=== PATIENT | male | born 1965 | race Caucasian/White ===

== ENCOUNTER → 2017-03-26 | Outpatient (CLI) | payer OTHER ==
[~2017-03-26] MED LIST: AMLO-114 PO; LISI-725 PO; OXYC-57 PO; TRAM-10 PO
[2017-03-26 16:39] LABS: BASO % 0.5 %; BASO ABS # 0.03 K/uL (0-0.2); COMPLETE YES; EOS % 5.9 %; IG% 0.2 %; LYMPH % 38.5 %; LYMPH ABS # 2.48 K/uL (1.2-3.4); MEAN CELL VOLUME 85.8 fL (80-100); MEAN CORPUSCULAR HEMOGLOBIN 28.3 pg (25-34); MEAN PLATELET VOLUME 9.5 fL (7.4-10.4); NEUT % 47.9 %; PLATELET COUNT 274 K/uL (130-400); RED BLOOD COUNT 5.13 M/uL (4.7-6.1); WHITE BLOOD COUNT 6.44 K/uL (4.8-10.8)
[2017-03-26 17:25] LABS: ALT/SGPT 43 U/L (12-78); AST/SGOT 20 U/L (15-37); BLOOD UREA NITROGEN 20 mg/dl (7-18); CALCIUM 9.6 mg/dl (8.5-10.1); CARBON DIOXIDE 32 mmol/L (21-32); CHLORIDE 104 mmol/L (98-107); GLUCOSE 93 mg/dl (70-99); HDL CHOLESTEROL 46 mg/dl; POTASSIUM 3.2 mmol/L (3.5-5.1); SODIUM 144 mmol/L (136-145)
[2017-03-26 17:31] LABS: ALKALINE PHOSPHATASE 134 U/L (45-117); CHOLESTEROL 191 mg/dl (0-200); CHOLESTEROL/HDL RATIO 4.2; LDL CHOLESTEROL CALCULATED 107 mg/dl; TRIGLYCERIDES 192 mg/dl (0-150); VERY LOW DENSITY LIPOPROT CALC 38 mg/dl
== END | disposition home or self-care (01) ==
LOC: C.LAB1850 15:56
PROVIDERS: ATTEND Internal Medicine
DX: E78.5 Hyperlipidemia, unspecified (principal); D64.9 Anemia, unspecified; Z12.5 Encounter for screening for malignant neoplasm of prostate

== ENCOUNTER 2023-02-24 10:14 | Observation (INO) ==
[2023-02-24] MEDS ORDERED: ONDANSETRON INJ 2 MG/ML 2 ML VIAL IV STA (10:58)
[2023-02-24] MEDS ORDERED: SODIUM CHLORIDE 0.9% 1000ML 1,000 ML IV ONE ×2 (10:58→13:39)
[2023-02-24] MEDS ORDERED: ACETAMINOPHEN 1,000 MG/100 ML VIAL IV STA (10:58)
--- NOTE | 2023-02-24 11:02 | Emergency Department Note ---
Impression & Plan Dizziness, Headache, Hypertension, Noncompliance, Nausea & vomiting ED Provider Note ED Provider Note NAME: MANFRED PEREZ AGE:57 SEX: Male : 1965 ARRIVES VIA: Private vehicle INFORMANT: Patient ED PROVIDER(s): Peace Pimentel DO CHIEF COMPLAINT: Dizziness, headache, vomiting HPI: This is a 57-year-old male presents emergency department due to 3 days of worsening dizziness, headaches, nausea and vomiting. Patient states he has had similar episodes previously going back over the last several months. He states in the last 3 days he has had a dull headache/pressure behind his eyes, dizziness that he describes as spinning with any changing positions particularly standing and walking, and once he becomes dizzy he then develops nausea and occasionally vomiting. He denies any recent head trauma or injury. He denies fevers, chills, or URI symptoms. He states he does have a history of high blood pressure but does not take his medications because it makes him too tired. He denies any new medications. He denies any seasonal allergies. Patient is has had prior mild similar symptoms, however they have never lasted this long over the severe. No prior known trigger or pattern to these episodes. He denies any recent trauma or change in activity. No prior history of migraines. Patient denies any alcohol use or substance abuse. PAST MEDICAL HISTORY:See Below PAST SURGICAL HISTORY:See Below FAMILY HISTORY:See Below SOCIAL HISTORY:See Below HOME MEDICATIONS:See Below ALLERGIES:See Below VITALS:See Below PHYSICAL EXAMINATION: GENERAL: alert, well appearing, well nourished, no distress, non-toxic EYE EXAM: normal conjunctiva, PERRL and EOM's grossly intact OROPHARYNX: no exudate, no erythema, lips, buccal mucosa, and tongue normal and mucous membranes are moist NECK: supple, no nuchal rigidity, no adenopathy, non-tender LUNGS: Clear to auscultation. Normal chest wall mechanics, no w/r/r HEART: no murmurs, S1 normal and S2 normal ABDOMEN: abdomen soft, non-tender, normo-active bowel sounds, no masses, no rebound or guarding. BACK: Back is symmetrical on inspection and there is no deformity, no midline tenderness, no CVA tenderness. SKIN: no rashes, petechiae, orbruising UPPER EXTREMITIES: upper extremities are grossly normal. FROM, nml pulses b/l. LOWER EXTREMITIES: No pitting edema. FROM, nml pulses b/l. NEURO EXAM: Normal sensorium, cranial nerves II-XII grossly intact, normal speech, no facial droop,nogross weakness of arms, no gross weakness of legs. Gross sensation intact. No ataxia. Vital Signs: reviewed and remarkable Differential Diagnosis: Differential diagnosis includes etiologies such as benign positional vertigo, dehydration, hypovolemia, anemia, tumor, infection, hypoglycemia, electrolyte abnormalities, cardiac sources, intracerebral event, toxicologic, neurologic, as well as others were entertained. MEDICAL DECISION MAKING: This is a 57-year-old male presents with 3 days of worsening dizziness, nausea vomiting, and retro-orbital head pressure. Patient noted to be markedly hypertensive on arrival and patient admits to history of hypertension and noncompliance with prescribed regimen. Labs drawn and sent, IV established, EKG performed and interpreted by me at bedside, chest x-ray performed interpreted by me at bedside and patient placed on telemetry. Patient's blood pressure elevated throughout, he was given both oral and IV antihypertensive medications in an effort to help improve his other symptomatology. He was hydrated with 2 L of IV fluids, given meclizine as well as Zofran for the nausea. Patient sent for CT/CTA that was reassuring. Patient's other labs reassuring. Patient reported feeling worse following improved blood pressure here and after discussion of possible differential diagnosis and potential need for other additional testing, case discussed with hospitalist for additional evaluation and management. Unclear if symptoms are related to hypertensive urgency. No evidence at this time for hypertensive emergency. Patient had a otherwise normal and nonfocal neuro exam throughout. Mild troponin elevation noted however I suspect this is from his chronic untreated hypertension at this time. No acute EKG changes. Consultation(s): 1622: Discussed with BENNIE Galo with [place] hospitalist team. ER Treatment Provided: See below 1502: Patient with significant dizziness and unsteady gait with attempts at standing for orthostatics and attempts at going to the bathroom. 1602: Patient states he is feeling worse despite his improved blood pressure. Diagnostics Interpreted By Me: -ECG: Normal sinus at 70, normal axis, normal intervals, no acute ST/T wave changes -Cardiac Monitoring: An order was placed for continuous cardiac monitoring. The monitor shows a rate of 78 with normal sinus rhythm. -Laboratory studies: As stated above and show below. -Imaging studies: X-ray Chest: A single view study of the chest was reviewed and was negative for cardiomegaly, focal infiltrate, effusion, pulmonary edema, or wide mediastinum. Triage Nursing Note Reviewed Prior/Outside Records Reviewed Past Med/Surg History Social History Smoking Status: Current some day smoker Preferred Language: Croatian Feels Safe at Home: Yes Allergies Allergies Allergy/AdvReac Type Severity Reaction Status Date / Time No Known Allergies Allergy Unknown Verified 02/24/23 15:10 Home Meds Home Medications Medication Instructions Recorded Confirmed No Known Home Medications 02/24/23 02/24/23 Results & Data (ED) Vital Signs Vital Signs - 24 hr 02/24/23 10:18 02/24/23 12:04 02/24/23 11:00 Temperature 36.8 C Temperature Source Temporal Artery Scan Pulse Rate - Lying Pulse Rate - Sitting Pulse Rate - Standing Pulse Rate 77 59 L 76 Pulse Rate [Apical] Pulse Rate from SpO2 Sensor 74 Respiratory Rate 18 16 Respiratory Effort / Characteristics Non-Labored Spontaneous Respiratory Depth Normal Respiratory Pattern Regular Blood Pressure - Lying Blood Pressure - Sitting Blood Pressure- Standing Blood Pressure 181/124 H 176/99 H Blood Pressure [Right Arm] Blood Pressure Mean 143 124 Blood Pressure Mean [Right Arm] Pulse Oximetry 97 98 Oxygen Delivery Method Room Air Sepsis Recent Fever Within 48 Hours No Sepsis New/Unexplained Change in Mental Status No Sepsis Action Taken by Nursing No Action Required 02/24/23 12:00 02/24/23 13:15 02/24/23 13:52 Temperature Temperature Source Pulse Rate - Lying 64 Pulse Rate - Sitting 79 Pulse Rate - Standing 75 Pulse Rate 57 L 61 Pulse Rate [Apical] Pulse Rate from SpO2 Sensor 57 L 64 Respiratory Rate 18 15 Respiratory Effort / Characteristics Respiratory Depth Respiratory Pattern Blood Pressure - Lying 176/110 H Blood Pressure - Sitting 194/121 H Blood Pressure- Standing 189/119 H Blood Pressure 180/97 H 170/104 H Blood Pressure [Right Arm] Blood Pressure Mean 124 126 Blood Pressure Mean [Right Arm] Pulse Oximetry 96 97 Oxygen Delivery Method Sepsis Recent Fever Within 48 Hours Sepsis New/Unexplained Change in Mental Status Sepsis Action Taken by Nursing 02/24/23 15:03 02/24/23 16:11 02/24/23 16:15 Temperature Temperature Source Pulse Rate - Lying Pulse Rate - Sitting Pulse Rate - Standing Pulse Rate 73 Pulse Rate [Apical] 68 68 Pulse Rate from SpO2 Sensor Respiratory Rate 18 18 Respiratory Effort / Characteristics Respiratory Depth Respiratory Pattern Blood Pressure - Lying Blood Pressure - Sitting Blood Pressure- Standing Blood Pressure Blood Pressure [Right Arm] 154/102 H 176/109 H Blood Pressure Mean Blood Pressure Mean [Right Arm] 119 131 Pulse Oximetry 98 98 Oxygen Delivery Method Room Air Room Air Sepsis Recent Fever Within 48 Hours Sepsis New/Unexplained Change in Mental Status Sepsis Action Taken by Nursing 02/24/23 16:58 Temperature Temperature Source Pulse Rate - Lying Pulse Rate - Sitting Pulse Rate - Standing Pulse Rate Pulse Rate [Apical] 66 Pulse Rate from SpO2 Sensor Respiratory Rate 16 Respiratory Effort / Characteristics Respiratory Depth Respiratory Pattern Blood Pressure - Lying Blood Pressure - Sitting Blood Pressure- Standing Blood Pressure Blood Pressure [Right Arm] 189/104 H Blood Pressure Mean Blood Pressure Mean [Right Arm] 132 Pulse Oximetry 96 Oxygen Delivery Method Room Air Sepsis Recent Fever Within 48 Hours Sepsis New/Unexplained Change in Mental Status Sepsis Action Taken by Nursing Laboratory Data 02/24/23 10:52 02/24/23 10:52 Lab Results 02/24/23 02/24/23 02/24/23 Range/Units 10:52 10:52 10:52 WBC 6.89 (4.8-10.8) K/ul RBC 5.43 (4.70-6.10) M/uL Hgb 15.4 (14.0-18.0) g/dl Hct 45.9 (42.0-52.0) % MCV 84.5 (80.0-100.0) fL MCH 28.4 (25.0-34.0) pg MCHC 33.6 (32.0-36.0) g/dL RDW Std Deviation 37.5 (36.4-46.3) fL RDW Coeff of Eleazar 12.4 (11.5-14.5) % Plt Count 301 (130-400) K/uL MPV 9.3 L (9.4-12.4) fL Immature Gran % (Auto) 0.3 % Neut % (Auto) 56.6 % Lymph % (Auto) 26.9 % [place] % (Auto) 8.1 % Eos % (Auto) 7.4 % Baso % (Auto) 0.7 % Neut # (Auto) 3.90 (1.40-6.50) K/uL Lymph # (Auto) 1.85 (1.2-3.4) K/uL [place] # (Auto) 0.56 (0.11-0.59) K/uL Eos # (Auto) 0.51 H (0-0.50) K/uL Baso # (Auto) 0.05 (0-0.2) K/uL Immature Gran # (Auto) 0.02 (0.01-0.20) K/uL ESR 23 H (0-20) mm/hr Sodium 140 (136-145) mmol/L Potassium 4.0 (3.5-5.1) mmol/L Chloride 104 (98-107) mmol/L Carbon Dioxide 29 (21-32) mmol/L Anion Gap 7 (3-11) BUN 19 (6-23) mg/dl Creatinine 1.10 (0.6-1.4) mg/dl Est Cr Clr Drug Dosing 80.8 ml/min Est GFR ( Amer) 87.1 ml/min Est GFR (Non-Af Amer) 75.2 ml/min BUN/Creatinine Ratio 17.3 (10-20) Glucose 99 (70-99(Fasting)) mg/dl Calcium 9.0 (8.6-10.3) mg/dl Magnesium 2.3 (1.7-2.4) mg/dl Total Bilirubin 0.4 (0.2-1.0) mg/dl AST 19 (13-39) U/L ALT 26 (7-52) U/L Alkaline Phosphatase 92 (34-104) U/L Troponin I High Sens 23.5 H (0-20) pg/ml Total Protein 7.1 (6.0-8.3) gm/dl Albumin 4.2 (3.4-5.0) gm/dl Globulin 2.9 (2.5-4.0) gm/dl Albumin/Globulin Ratio 1.4 (0.9-2) Lipase 18 (11-82) U/L TSH (0.300-4.500) uIu/ml 02/24/23 Range/Units 10:52 WBC (4.8-10.8) K/ul RBC (4.70-6.10) M/uL Hgb (14.0-18.0) g/dl Hct (42.0-52.0) % MCV (80.0-100.0) fL MCH (25.0-34.0) pg MCHC (32.0-36.0) g/dL RDW Std Deviation (36.4-46.3) fL RDW Coeff of Elaezar (11.5-14.5) % Plt Count (130-400) K/uL MPV (9.4-12.4) fL Immature Gran % (Auto) % Neut % (Auto) % Lymph % (Auto) % [place] % (Auto) % Eos % (Auto) % Baso % (Auto) % Neut # (Auto) (1.40-6.50) K/uL Lymph # (Auto) (1.2-3.4) K/uL [place] # (Auto) (0.11-0.59) K/uL Eos # (Auto) (0-0.50) K/uL Baso # (Auto) (0-0.2) K/uL Immature Gran # (Auto) (0.01-0.20) K/uL ESR (0-20) mm/hr Sodium (136-145) mmol/L Potassium (3.5-5.1) mmol/L Chloride (98-107) mmol/L Carbon Dioxide (21-32) mmol/L Anion Gap (3-11) BUN (6-23) mg/dl Creatinine (0.6-1.4) mg/dl Est Cr Clr Drug Dosing ml/min Est GFR ( Amer) ml/min Est GFR (Non-Af Amer) ml/min BUN/Creatinine Ratio (10-20) Glucose (70-99(Fasting)) mg/dl Calcium (8.6-10.3) mg/dl Magnesium (1.7-2.4) mg/dl Total Bilirubin (0.2-1.0) mg/dl AST (13-39) U/L ALT (7-52) U/L Alkaline Phosphatase (34-104) U/L Troponin I High Sens (0-20) pg/ml Total Protein (6.0-8.3) gm/dl Albumin (3.4-5.0) gm/dl Globulin (2.5-4.0) gm/dl Albumin/Globulin Ratio (0.9-2) Lipase (11-82) U/L TSH 1.761 (0.300-4.500) uIu/ml Administered Medications Discontinued Medications Amlodipine Besylate (Amlodipine Besylate 5 Mg Tab) 5 mg PO NOW ONE Stop: 02/24/23 13:03 Last Admin: 02/24/23 13:13 Dose: 5 mg Documented By: MARGARITA Hydralazine HCl (Hydralazine Hcl 20 Mg/Ml Vial) 10 mg IV NOW STA Stop: 02/24/23 14:34 Last Admin: 02/24/23 14:39 Dose: 10 mg Documented By: JOSE JUAN Sodium Chloride (Nss 1000ml) 1,000 mls @ 999 mls/hr IV .Q1H1M ONE Stop: 02/24/23 11:58 Last Infusion: 02/24/23 12:24 Dose: 0 mls/hr Documented By: Admin: 02/24/23 11:18 Dose: 999 mls/hr Documented By: MARGARITA Acetaminophen (Ofirmev) 1,000 mg in 100 mls @ 400 mls/hr IV NOW STA Stop: 02/24/23 11:12 Last Infusion: 02/24/23 11:40 Dose: 0 mls/hr Documented By: Admin: 02/24/23 11:19 Dose: 400 mls/hr Documented By: MARGARITA Sodium Chloride (Nss 1000ml) 1,000 mls @ 999 mls/hr IV .Q1H1M ONE Stop: 02/24/23 14:39 Last Infusion: 02/24/23 14:45 Dose: 0 mls/hr Documented By: Admin: 02/24/23 13:51 Dose: 999 mls/hr Documented By: JOSE JUAN Ioversol (Optiray 320 500ml) 114 ml IV ONCE ONE Stop: 02/24/23 12:19 Last Admin: 02/24/23 12:23 Dose: 114 ml Documented By: HELENE Meclizine HCl (Meclizine Hcl 25 Mg Tab) 25 mg PO NOW STA Stop: 02/24/23 13:03 Last Admin: 02/24/23 13:13 Dose: 25 mg Documented By: MARGARITA Ondansetron HCl (Ondansetron Inj 2 Mg/Ml 2 Ml Vial) 4 mg IV NOW STA Stop: 02/24/23 10:59 Last Admin: 02/24/23 11:18 Dose: 4 mg Documented By: [facility] Imaging Data Radiologist's Impression: Head CT 02/24/23 10:58 CT head/brain wo con CLINICAL HISTORY: 57 years-old Male with headache, dizzy. Acute headache with dizziness TECHNIQUE: Multiple axial CT images of the head were obtained without contrast. A dose lowering technique was utilized adhering to the principles of ALARA. COMPARISON: Head CT 09/15/2022 FINDINGS: No acute intracranial hemorrhage, midline shift, intracranial mass, hydrocephalus, territorial ischemia or abnormal extra-axial collection. The calvarium is intact. The paranasal sinuses, mastoid air cells, and middle ear cavities are clear. IMPRESSION: No acute intracranial abnormality. ACT 112: Negative or not required by law. The above report was generated using voice recognition software. It may contain grammatical, syntax or spelling errors. Electronically signed by: Christian Beckford M.D. 02/24/2023 12:45 PM Head CTA 02/24/23 10:58 HEAD CTA HISTORY: dizzy, headache, htn TECHNIQUE: Multiaxial CT images of the head were performed both before and after the intravenous administration of contrast to evaluate the major cerebral vessels. Maximum intensity projection images were also obtained. A dose lowering technique was utilized adhering to the principles of ALARA. COMPARISON: Head CT 09/15/2022. FINDINGS: There is no mass, hematoma, midline shift, or acute infarct. Visualized intracranial internal carotid arteries, distal vertebral arteries, and basilar artery are widely patent. There is no significant stenosis, occlusion, or aneurysm seen within the bilateral ACAs, MCAs, or bucket operator. IMPRESSION: No significant stenosis, occlusion, or aneurysm within the [place]. ACT 112: Negative or not required by law. Electronically signed by: Tre Mckeon M.D. 02/24/2023 12:40 PM Neck CTA 02/24/23 10:58 CT ANGIOGRAPHY OF THE NECK WITH CONTRAST CLINICAL HISTORY: Headache. Dizziness. Hypertension. COMPARISON STUDY: No previous studies for comparison. Technique: CT angiography of the carotid and vertebral arteries was obtained using Optiray and 3D reconstruction on an independent workstation. NASCET criteria was utilized. Automated exposure control was utilized for the study. A dose lowering technique was utilized adhering to the principles of ALARA. Findings: Visualized portions of the lung apices are unremarkable. There is no c ervical spine fracture. No suspicious osseous lesions are present. Multilevel degenerative changes within the cervical spine are present. The bilateral common carotid, cervical internal carotid and vertebral arteries are patent. There is no stenosis or dissection within these vessels. There is mild plaque within the proximal bilateral internal carotid arteries. No aneurysm within the neck. IMPRESSION: No stenosis or dissection within the bilateral common carotid, cervical internal carotid or vertebral arteries. Mild plaque within the proximal bilateral internal carotid arteries. ACT 112: Negative or not required by law. Electronically signed by: Kevon Alston M.D. 02/24/2023 12:35 PM Chest X-Ray 02/24/23 10:59 XR chest 1V portable HISTORY: Hypertension. COMPARISON: Chest 09/15/2022. FINDINGS: The lungs are clear. Cardiac silhouette is normal in size. No pleural effusions. No pneumothorax. IMPRESSION: No acute process. ACT 112: Negative or not required by law. Electronically signed by: Tre Mckeon M.D. 02/24/2023 11:11 AM Discharge Plan Visit Data Chief Complaint: TIA Symptoms Stated Complaint: SPINS, EYE SIGHT COMES AND GOES, NAUSEA, LAST 3 D ED Provider: Peace Pimentel Discharge Problem: Dizziness, Headache, Hypertension, Noncompliance, Nausea & vomiting Forms Stand Alone Forms: Snapd App Prescriptions Prescriptions: No Action No Known Home Medications Referrals Referrals: PCP,NO [Primary Care Provider] -
--- NOTE | 2023-02-24 11:12 | XRay Report ---
XR chest 1V portable HISTORY: Hypertension. COMPARISON: Chest 09/15/2022. FINDINGS: The lungs are clear. Cardiac silhouette is normal in size. No pleural effusions. No pneumot horax. IMPRESSION: No acute process. ACT 112: Negative or not required by law. Electronically signed by: Tre Mckeon M.D. 02/24/2023 11:11 AM
[2023-02-24 11:17] LABS: Basophils # (auto) 0.05 K/uL (0-0.2); Basophils % (auto) 0.7 %; Eosinophils # (auto) 0.51 K/uL (0-0.50); Eosinophils % (auto) 7.4 %; Hematocrit (blood only) 45.9 % (42.0-52.0); Hemoglobin 15.4 g/dl (14.0-18.0); Immature Granulocytes # (auto) 0.02 K/uL (0.01-0.20); Immature Granulocytes % (auto) 0.3 %; Lymphocytes # (auto) 1.85 K/uL (1.2-3.4); Lymphocytes % (auto) 26.9 %; Mean Corpuscular Hemoglobin 28.4 pg (25.0-34.0); Mean Corpuscular Hgb Conc 33.6 g/dL (32.0-36.0); Mean Corpuscular Volume 84.5 fL (80.0-100.0); Mean Platelet Volume 9.3 fL (9.4-12.4); Monocytes # (auto) 0.56 K/uL (0.11-0.59); Monocytes % (auto) 8.1 %; Neutrophils % (auto) 56.6 %; Platelet Count 301 K/uL (130-400); RDW Coefficient of Variation 12.4 % (11.5-14.5); RDW Standard Deviation 37.5 fL (36.4-46.3); Red Blood Count 5.43 M/uL (4.70-6.10); White Blood Count 6.89 K/ul (4.8-10.8)
[2023-02-24 11:40] LABS: Albumin Globulin Ratio 1.4 (0.9-2); Albumin Level 4.2 gm/dl (3.4-5.0); BUN Creatinine Ratio 17.3 (10-20); Bilirubin,Total 0.4 mg/dl (0.2-1.0); Creatinine Clr Calc Pharmacy 80.8 ml/min; Est GFR (African American) 87.1 ml/min; Est GFR (Non-African American) 75.2 ml/min; Globulin 2.9 gm/dl (2.5-4.0); Magnesium 2.3 mg/dl (1.7-2.4); Total Protein 7.1 gm/dl (6.0-8.3)
[2023-02-24 11:45] LABS: Troponin I High Sensitivity 23.5 pg/ml (0-20)
--- NOTE | 2023-02-24 12:00 | Electrocardiogram Report ---
Test Reason : Blood Pressure : / mmHG Vent. Rate : 070 BPM Atrial Rate : 070 BPM P-R Int : 134 ms QRS Dur : 102 ms QT Int : 398 ms P-R-T Axes : 046 -07 111 degrees QTc Int : 429 ms Normal sinus rhythm Left ventricular hypertrophy with repolarization abnormality Abnormal ECG When compared with ECG of 15-SEP-2022 13:09, No significant change was found Confirmed by Frederick Garibay ([id number]) on 02/24/2023 12:00:22 PM Referred By: REFERRED SELF Confirmed By:Frederick Garibay
[2023-02-24] MEDS ORDERED: OPTIRAY 320 500ml IV ONE (12:18)
--- NOTE | 2023-02-24 12:37 | CT Scan Report ---
CT ANGIOGRAPHY OF THE NECK WITH CONTRAST CLINICAL HISTORY: Headache. Dizziness. Hypertension. COMPARISON STUDY: No previous studies for comparison. Technique: CT angiography of the carotid and vertebral arteries was obtained using Optiray and 3D rec onstruction on an independent workstation. NASCET criteria was utilized. Automated exposure control was utilized for the study. A dose lowering technique was utilized adhering to the principles of ALA RA. Findings: Visualized portions of the lung apices are unremarkable. There is no cervical spine fractur e. No suspicious osseous lesions are present. Multilevel degenerative changes within the cervical spi ne are present. The bilateral common carotid, cervical internal carotid and vertebral arteries are pa tent. There is no stenosis or dissection within these vessels. There is mild plaque within the proxim al bilateral internal carotid arteries. No aneurysm within the neck. IMPRESSION: No stenosis or dissection within the bilateral common carotid, cervical internal carotid or vertebral arteries. Mild plaque within the proximal bilateral internal carotid arteries. ACT 112: Negative or not required by law. Electronically signed by: Kevon Alston M.D. 02/24/2023 12:35 PM
--- NOTE | 2023-02-24 12:41 | CT Scan Report ---
HEAD CTA HISTORY: dizzy, headache, htn TECHNIQUE: Multiaxial CT images of the head were performed both before and after the intravenous admi nistration of contrast to evaluate the major cerebral vessels. Maximum intensity projection images we re also obtained. A dose lowering technique was utilized adhering to the principles of ALARA. COMPARISON: Head CT 09/15/2022. FINDINGS: There is no mass, hematoma, midline shift, or acute infarct. Visualized intracranial international controller al carotid arteries, distal vertebral arteries, and basilar artery are widely patent. There is no sig nificant stenosis, occlusion, or aneurysm seen within the bilateral ACAs, MCAs, or talent development consultant. IMPRESSION: No significant stenosis, occlusion, or aneurysm within the [place]. ACT 112: Negative or not required by law. Electronically signed by: Tre Mckeon M.D. 02/24/2023 12:40 PM
--- NOTE | 2023-02-24 12:48 | CT Scan Report ---
CT head/brain wo con CLINICAL HISTORY: 57 years-old Male with headache, dizzy. Acute headache with dizziness TECHNIQUE: Multiple axial CT images of the head were obtained without contrast. A dose lowering tech nique was utilized adhering to the principles of ALARA. COMPARISON: Head CT 09/15/2022 FINDINGS: No acute intracranial hemorrhage, midline shift, intracranial mass, hydrocephalus, territorial ischem ia or abnormal extra-axial collection. The calvarium is intact. The paranasal sinuses, mastoid air cells, and middle ear cavities are clear . IMPRESSION: No acute intracranial abnormality. ACT 112: Negative or not required by law. The above report was generated using voice recognition software. It may contain grammatical, syntax o r spelling errors. Electronically signed by: Christian Beckford M.D. 02/24/2023 12:45 PM
[2023-02-24] MEDS ORDERED: MECLIZINE HCL 25 MG TAB PO STA (13:02)
[2023-02-24] MEDS ORDERED: amLODIPine BESYLATE 5 MG TAB PO ONE (13:02)
[2023-02-24] MEDS ORDERED: hydrALAZINE HCL 20 MG/ML VIAL IV STA (14:33)
--- NOTE | 2023-02-24 16:29 | History & Physical Report ---
Date of Service February 24, 2023 Assessment & Plan (1) Dizziness: Plan: -Admit to med/tele -At this time the etiology of the patient's dizziness, nausea, vomiting and BL tinnitus appear most consistent with BPPV, but other neurologic causes cannot be ruled out at this time -He has had the symptoms for years but they have been exacerbated over the past week -Has a long history of HTN with medical noncompliance as he feels antihypertensives exacerbate his symptoms -CT of the head and CTA of the head and neck were negative for acute causes -Will obtain MRI of the brain WO con for further evaluation -Prn meclizine for recurrence of symptoms, fall precautions ordered -Will hold additional antihypertensives at this time and await MRI results -PT and OT consults placed, will request Raeann maneuver testing -BL SCD's for DVT PPX -AM CBC, BMP (2) Elevated troponin: Plan: -Initial high sen trop elevated at 23, the patient is asymptomatic and without ST segment or T-wave changes -Will repeat another high sen trop STAT and monitor on tele (3) Hypertension: Plan: -Hold antihypertensives for now until MRI of the brain is obtained -May need to restart the patient on one regimen prior to discharge Plan The patient was discussed with Dr. Harper at the time of the admission History of Present Illness Chief Complaint: Dizziness, nausea, comiting Primary Care Provider: ROSALINDA PCP Tristin is a 57 year old male with a PMH significant for HTN, tobacco abuse, and previous episodes of dizziness who presented to the [facility] ED on 02/24/23 with complaints of persistent dizziness, nausea, and vomiting. In the ED the patient was initially found to be afebrile, hypertensive at 181/124, and stable on RA. Labs were significant for a CBC WNL, ESR of 23, CMP WNL, initial high sen trop of 23.5, and TSH WNL. CT of the head was read as "No acute intracranial abnormality.". CTA of the head was read as "No significant stenosis, occlusion, or aneurysm within the augustine of Huff.". CTA of the neck was read as "No stenosis or dissection within the bilateral common carotid, cervical internal carotid or vertebral arteries. Mild plaque within the proximal bilateral internal carotid arteries.". Chest xray was read as "No acute process.". Per the ED staff, the patient was initially given meclizine, 2L NSS, and zofran without relief of his symptoms. After his initial stroke workup was negative he was given 5 mg PO amlodipine and 10 mg IV hydralazine for HTN, this reportedly made his symptoms worse. We were asked to admit the patient for further evaluation and treatment of his dizziness, nausea, vomiting, and HTN. At the time of the exam the patient was lying in bed in no acute distress. He states that he has had issues with dizziness for years. His typical symptoms are BL ringing in his ears, dizziness, and the sensation that the room is spinning. He states that he has used meclizine in the past which has worked at times. He states that he has a long history of HTN which has been difficult to control. He has previously been on Lisinopril, hydralazine, spironolactone, and carvedilol per chart review. He states in the past when his HTN is treated it makes his dizziness worse. He states he also has a remote history of CHF but is only on as needed lasix for swelling. His dizziness, nausea, and vomiting started again on 02/21. He states that walking exacerbates the symptoms and rest typically resolves them. His symptoms are worse over the past week than previously. He states that after he received the amlodipine and hydralazine in the ED his dizziness and nausea were exacerbated, even while lying in bed. Heis currently an intermittent smoker and denies consistent alcohol use and any recreational drug use. Please refer to Dr. Harper's attestation for any changes to the treatment plan Allergies Allergy/AdvReac Type Severity Reaction Status Date / Time No Known Allergies Allergy Unknown Verified 02/24/23 15:10 Home Medications Medication Instructions Recorded Confirmed Type No Known Home Medications 02/24/23 02/24/23 History Past Med/Surg History Social History Smoking Status: Never smoker Do You Dip or Chew Tobacco: Yes; Tobacco Cessation Education Requested by Patient: No Hx Alcohol Use: No Hx Substance Use: No Preferred Language: Slovak Communication Ability: Impaired Communication Ability Comment: [facility] Investment Accounting Clerk Required: No Beliefs That Will Affect Care: None Current Living Situation: Spouse Other Information That Helps Us Care for You: No Feels Safe at Home: Yes Safety Concerns: Feels Safe At This Time Assistive Devices: None Physical Exam Physical Exam: Physical Exam: General: In no acute distress, stated age, well-nourished, poor hygiene HEENT: Normocephalic, atraumatic, no scleral icterus, pupils around round, symmetrical, and reactive to light, moist mucus membranes, trachea midline, no thyromegaly Chest/Pulm: No respiratory distress, symmetrical chest expansion, clear breath sounds throughout Cardiac: RRR, no murmurs noted Abdomen: Negative for ascites and bruising, normoactive bowel sounds, soft, non-tender to palpation throughout Musculoskeletal: No acute trauma, RLE with reduced mobility due to previous injury and surgery Extremities: Radial, dorsalis pedis, and posterior tibial pulses are intact and symmetrical, no edema noted in the BL LE's Skin: Warm, dry, no rashes , lesions, or scars noted Neuro: Alert and oriented to person, place, month, year, and president, no focal defects, CN II-XII tested, EOM exacerbate his symptoms, no nystagmus noted , finger to nose test negative, no tremors noted Psych: No acute distress, calm and cooperative during the exam Results & Data Results & Data Vital Signs (Past 12 Hours) Vital Signs Temp Pulse Pulse Resp BP BP Pulse Ox 02/24/23 16:15 73 02/24/23 16:11 68 18 176/109 H 98 02/24/23 15:03 68 18 154/102 H 98 02/24/23 13:15 61 15 170/104 H 97 02/24/23 12:00 57 L 18 180/97 H 96 02/24/23 11:00 76 16 176/99 H 98 02/24/23 12:04 59 L 02/24/23 10:18 36.8 C 77 18 181/124 H 97 O2 Del Method 02/24/23 16:15 02/24/23 16:11 Room Air 02/24/23 15:03 Room Air 02/24/23 13:15 02/24/23 12:00 02/24/23 11:00 02/24/23 12:04 02/24/23 10:18 Room Air Laboratory Results Abnormal lab results 02/24/23 02/24/23 02/24/23 Range/Units 10:52 10:52 10:52 MPV 9.3 L (9.4-12.4) fL Eos # (Auto) 0.51 H (0-0.50) K/uL ESR 23 H (0-20) mm/hr Troponin I High Sens 23.5 H (0-20) pg/ml Diagnostic Findings Head CT 02/24/23 10:58 CT head/brain wo con CLINICAL HISTORY: 57 years-old Male with headache, dizzy. Acute headache with dizziness TECHNIQUE: Multiple axial CT images of the head were obtained without contrast. A dose lowering technique was utilized adhering to the principles of ALARA. COMPARISON: Head CT 09/15/2022 FINDINGS: No acute intracranial hemorrhage, midline shift, intracranial mass, hydrocephalus, territorial ischemia or abnormal extra-axial collection. The calvarium is intact. The paranasal sinuses, mastoid air cells, and middle ear cavities are clear. IMPRESSION: No acute intracranial abnormality. ACT 112: Negative or not required by law. The above report was generated using voice recognition software. It may contain grammatical, syntax or spelling errors. Electronically signed by: Christian Beckford M.D. 02/24/2023 12:45 PM Head CTA 02/24/23 10:58 HEAD CTA HISTORY: dizzy, headache, htn TECHNIQUE: Multiaxial CT images of the head were performed both before and after the intravenous administration of contrast to evaluate the major cerebral vessels. Maximum intensity projection images were also obtained. A dose lowering technique was utilized adhering to the principles of ALARA. COMPARISON: Head CT 09/15/2022. FINDINGS: There is no mass, hematoma, midline shift, or acute infarct. Visualized intracranial internal carotid arteries, distal vertebral arteries, and basilar artery are widely patent. There is no significant stenosis, occlusion, or aneurysm seen within the bilateral ACAs, MCAs, or teletype operator. IMPRESSION: No significant stenosis, occlusion, or aneurysm within the augustine of Huff. ACT 112: Negative or not required by law. Electronically signed by: Tre Mckeon M.D. 02/24/2023 12:40 PM Neck CTA 02/24/23 10:58 CT ANGIOGRAPHY OF THE NECK WITH CONTRAST CLINICAL HISTORY: Headache. Dizziness. Hypertension. COMPARISON STUDY: No previous studies for comparison. Technique: CT angiography of the carotid and vertebral arteries was obtained using Optiray and 3D reconstruction on an independent workstation. NASCET criteria was utilized. Automated exposure control was utilized for the study. A dose lowering technique was utilized adhering to the principles of ALARA. Findings: Visualized portions of the lung apices are unremarkable. There is no cervical spine fracture. No suspicious osseous lesions are present. Multilevel degenerative changes within the cervical spine are present. The bilateral common carotid, cervical internal carotid and vertebral arteries are patent. There is no stenosis or dissection within these vessels. There is mild plaque within the proximal bilateral internal carotid arteries. No aneurysm within the neck. IMPRESSION: No stenosis or dissection within the bilateral common carotid, cervical internal carotid or vertebral arteries. Mild plaque within the proximal bilateral internal carotid arteries. ACT 112: Negative or not required by law. Electronically signed by: Kevon Alston M.D. 02/24/2023 12:35 PM Chest X-Ray 02/24/23 10:59 XR chest 1V portable HISTORY: Hypertension. COMPARISON: Chest 09/15/2022. FINDINGS: The lungs are clear. Cardiac silhouette is normal in size. No pleural effusions. No pneumothorax. IMPRESSION: No acute process. ACT 112: Negative or not required by law. Electronically signed by: Tre Mckeon M.D. 02/24/2023 11:11 AM ECG Additional Comments: Normal sinus rhythm Left ventricular hypertrophy with repolarization abnormality Abnormal ECG When compared with ECG of 15-SEP-2022 13:09, No significant change was found Confirmed by Frederick Garibay ([id number]) on 02/24/2023 12:00:22 PM Code Status & VTE Plan Code Status Full code Supervising Physician Co-Signing Physician Notes I personally saw and examined the patient. I verified all orellana points and agree with Iraj Machado PA-C with the following exceptions and/or additions: 57 year old male presents to the ER with dizziness. He reports this is similar but more severe than his symptoms on August last year. Room spinning sensation with associated hearing loss and tinnitus b/l. O/E HS RRR, no murmurs, Chest CTAB, Abdo SNT, no unilateral focal weakness or change in sensation. Still have vertiginous symptoms. No nystagmus on exam. No significant worsening with head movement. A/P Vertigo, tinnitus, hearing loss - suspect meniere disease although previous MRIs including one today have not focussed on IAC therefore will get this for completeness. Use diazepam rather than meclizine for vertigo. Recommend ENT follow up although he reports he had this previously without any specific diagnosis. Could consider diuretic such as acetazolamide to reduce frequency of attacks but will defer this pending improvement in his symptoms. PG Care Time/CCT Total # of Minutes Spent Total Time Spent with Patient: Total time spent is greater than 50% in coordination of care (as documented) at patient's floor/unit and/or counseling patient: Coding [place] [address] INT INP/OBS CARE 3/75MIN Patient Type Established Medical Decision Making Moderate Complexity Diagnoses Dizziness R42 Elevated troponin R77.8 Hypertension I10
[2023-02-24] MEDS ORDERED: PHARMACIST DISCHARGE MED REC CONSULT PRN (16:49)
[2023-02-24] MEDS ORDERED: MECLIZINE HCL 25 MG TAB PO PRN (16:58)
[2023-02-24] MEDS ORDERED: LORazepam 2 MG/1 ML VIAL IV ONE (17:00)
[2023-02-24 17:16] LABS: Influenza A virus by PCR Negative (Neg); Influenza B virus by PCR Negative (Neg); RSV by PCR Negative (Neg); SARS CoV2 RNA(COVID-19) Ceph NEGATIVE (Negative)
--- NOTE | 2023-02-24 19:48 | Magnetic Resonance Report ---
Exam(s): MRI HEAD Without Contrast EXAM: MR Head Without Intravenous Contrast CLINICAL HISTORY: Reason for exam: stroke workup. TECHNIQUE: Magnetic resonance images of the head/brain without intravenous contrast in multiple planes. COMPARISON: CT head on 02/24/2023. MRI brain on 09/15/2022. FINDINGS: Brain: Unremarkable. No hemorrhage. No restricted diffusion to suggest acute infarct. Ventricles: Unremarkable. No ventriculomegaly. Bones/joints: Unremarkable. Sinuses: Mild mucosal thickening and polyps versus mucous retention cysts in the maxillary sinuses. Moderate to severe mucosal thickening in the ethmoid air cells. No acute sinusitis. Mastoid air cells: Unremarkable as visualized. No mastoid effusion. Orbits: Unremarkable as visualized. IMPRESSION: No restricted diffusion to suggest acute infarct. Electronically signed by: Carrie Su M.D. 02/24/23 19:47 PM
[2023-02-25] MEDS ORDERED: LORazepam 2 MG/1 ML VIAL IV PRN (00:21)
[2023-02-25] MEDS ORDERED: LORazepam 2 MG/1 ML VIAL IV STA (01:37)
[2023-02-25] MEDS ORDERED: GADOBUTROL 65ML VIAL IV ONE (02:05)
--- NOTE | 2023-02-25 03:22 | Magnetic Resonance Report ---
Exam(s): MRI IACS IV Amt: 8.5cc gadavist EXAM: MR Head With Intravenous Contrast, Internal Auditory Canal Protocol CLINICAL HISTORY: Reason for exam: tinnitus, hearing loss, vertigo r/o acoustic neuro. TECHNIQUE: Magnetic resonance images of the head/brain with intravenous contrast in multiple planes using internal auditory canal protocol. CONTRAST: Patient received 8.5cc gadavist of IV contrast COMPARISON: Comparison is made to prior noncontrast brain MRI from February 24, 2023. FINDINGS: Cranial nerves: Unremarkable. No mass. No abnormal enhancement. Cochlea and semicircular canals: Unremarkable. Cerebellopontine angles: Unremarkable. No mass. Brain: Unremarkable as visualized. No mass. No hemorrhage. The flow voids at the base of the brain are intact. Ventricles: Unremarkable as visualized. Bones/joints: Mild disc facet arthropathy at C2-3 and C3-4. Unremarkable. Sinuses: Chronic pansinusitis. No acute sinusitis. Mastoid air cells: Unremarkable as visualized. No mastoid effusion. Orbits: There is proliferation of the intraorbital fat. IMPRESSION: Normal internal auditory canal MRI. 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 Chronic pansinusitis. Electronically signed by: Tomasa Pierce MD 02/25/23 03:21 AM
[2023-02-25] MEDS: ACETAMINOPHEN 325 MG TAB PO PRN (08:20)
[2023-02-25 08:39] LABS: Basophils # (auto) 0.05 K/uL (0-0.2); Basophils % (auto) 0.9 %; Eosinophils % (auto) 8.6 %; Hematocrit (blood only) 43.9 % (42.0-52.0); Hemoglobin 15.1 g/dl (14.0-18.0); Immature Granulocytes # (auto) 0.02 K/uL (0.01-0.20); Immature Granulocytes % (auto) 0.3 %; Lymphocytes # (auto) 1.62 K/uL (1.2-3.4); Lymphocytes % (auto) 27.7 %; Mean Corpuscular Hemoglobin 28.5 pg (25.0-34.0); Mean Corpuscular Hgb Conc 34.4 g/dL (32.0-36.0); Mean Corpuscular Volume 82.8 fL (80.0-100.0); Mean Platelet Volume 9.4 fL (9.4-12.4); Monocytes # (auto) 0.42 K/uL (0.11-0.59); Monocytes % (auto) 7.2 %; Neutrophils # (auto) 3.23 K/uL (1.40-6.50); Neutrophils % (auto) 55.3 %; Platelet Count 284 K/uL (130-400); RDW Coefficient of Variation 12.6 % (11.5-14.5); White Blood Count 5.84 K/ul (4.8-10.8)
[2023-02-25 08:56] LABS: BUN Creatinine Ratio 17.5 (10-20); Calcium 8.9 mg/dl (8.6-10.3); Creatinine Clr Calc Pharmacy 86.3 ml/min; Est GFR (African American) 94.3 ml/min; Est GFR (Non-African American) 81.4 ml/min; Potassium 4.1 mmol/L (3.5-5.1)
[2023-02-25] MEDS: lisinopril 10 MG TAB PO SCH (11:08)
[2023-02-25] MEDS: MECLIZINE HCL 25 MG TAB PO SCH ×3 (11:08→21:25)
[2023-02-25] MEDS: methylPREDNISolone 40 MG in SYRINGE 0 ML IV SCH ×2 (11:08→16:19)
[2023-02-25] MEDS: diazePAM 5 MG TABLET PO PRN ×2 (11:58→21:24)
--- NOTE | 2023-02-25 14:30 | Hospitalist Progress Note ---
Date of Service February 25, 2023 Assessment & Plan (1) Dizziness: Plan: Suspected acute labyrinthitis. No CVA seen on brain MRI scan. Head CT scan on admission and head and neck CTA are negative. He is now on scheduled meclizine and Solu-Medrol. (2) Elevated troponin: Plan: No trending. No evidence of acute coronary syndrome. We will follow (3) Hypertension: Plan: Lisinopril started for blood pressure control. Plan Hopeful discharge to home tomorrow, February 26 Admission and Anticipated Discharge Date Admission Date: February 24, 2023 Subjective Alert and oriented. No acute distress. Brain MRI scan negative for acute CVA. Head and neck CTA and head CT scan also negative on admission. Lisinopril started for blood pressure control. He is on scheduled meclizine dosing and Solu-Medrol. Hopefully his symptoms will rapidly improve and he will be able to go home tomorrow, February 26 Review of Systems Review of Systems: Constitutional-no fever or chills ENT-no blurred vision, no double vision, no epistaxis, no sore throat Respiratory-no cough, no wheezing, no shortness of breath Cardiac-no palpitations, no chest pain, no syncope GI-no nausea, vomiting, diarrhea, melena, hematochezia -no urinary retention, no urinary incontinence, no dysuria, no hematuria Musculoskeletal-no joint pain, no muscle tenderness Skin-no bruising, no rashes, no pruritus Neuro-no isolated weakness, no paresthesia. Vertigo symptoms with movement Psych-no depression, no anxiety Physical Exam Physical Exam: General-alert and oriented x3, no fevers, no chills HEENT-head atraumatic and normocephalic, pupils equal and reactive to light, extraocular muscles intact Neck-no lymphadenopathy or thyromegaly, trachea midline Chest-clear to auscultation percussion. No rales wheezing or rhonchi Cardiac-regular rate and rhythm, normal S1 and S2 Abdomen-normal bowel sounds, nontender, no hepatosplenomegaly Extremities-no cyanosis, clubbing, or edema Neuro-vertigo symptoms with movement. Cranial nerves II through XII intact, motor and sensory function within normal limits, strength symmetrical , no focal deficits Psych-normal affect, normal mood Results & Data Results & Data Vital Signs (Past 12 Hours) Vital Signs Temp Pulse Pulse Resp BP BP Pulse Ox 02/25/23 12:20 36.6 C 68 17 172/97 H 96 02/25/23 11:11 66 02/25/23 08:07 36.8 C 69 17 169/94 H 96 02/25/23 03:13 36.6 C 85 18 173/98 H 97 O2 Del Method 02/25/23 12:20 Room Air 02/25/23 11:11 02/25/23 08:07 Room Air 02/25/23 03:13 Room Air Laboratory Results 02/25/23 08:23 02/25/23 08:23 PG Care Time/CCT Total # of Minutes Spent Total Time Spent with Patient: Total time spent is greater than 50% in coordination of care (as documented) at patient's floor/unit and/or counseling patient: Coding Level of Care Code 99126 SUB INP/OBS CARE 3/50MIN Diagnoses Dizziness R42 Elevated troponin R77.8 Hypertension I10
[2023-02-26] MEDS: methylPREDNISolone 40 MG in SYRINGE 0 ML IV SCH ×2 (00:53→07:44)
[2023-02-26 06:03] LABS: Hematocrit (blood only) 45.4 % (42.0-52.0); Hemoglobin 15.4 g/dl (14.0-18.0); Mean Corpuscular Hemoglobin 28.1 pg (25.0-34.0); Mean Corpuscular Hgb Conc 33.9 g/dL (32.0-36.0); Mean Corpuscular Volume 82.8 fL (80.0-100.0); Mean Platelet Volume 9.6 fL (9.4-12.4); Platelet Count 345 K/uL (130-400); RDW Coefficient of Variation 12.6 % (11.5-14.5); RDW Standard Deviation 38.2 fL (36.4-46.3); Red Blood Count 5.48 M/uL (4.70-6.10); White Blood Count 15.29 K/ul (4.8-10.8)
[2023-02-26 06:17] LABS: BUN Creatinine Ratio 21.8 (10-20); Calcium 9.4 mg/dl (8.6-10.3); Est GFR (African American) 96.6 ml/min; Est GFR (Non-African American) 83.3 ml/min
[2023-02-26 06:28] LABS: Basophils # (auto) 0.01 K/uL (0-0.2); Basophils % (auto) 0.1 %; Immature Granulocytes # (auto) 0.09 K/uL (0.01-0.20); Immature Granulocytes % (auto) 0.6 %; Lymphocytes # (auto) 0.88 K/uL (1.2-3.4); Lymphocytes % (auto) 5.8 %; Monocytes # (auto) 0.22 K/uL (0.11-0.59); Monocytes % (auto) 1.4 %; Neutrophils # (auto) 14.09 K/uL (1.40-6.50); Neutrophils % (auto) 92.1 %
[2023-02-26] MEDS: MECLIZINE HCL 25 MG TAB PO SCH (07:44)
[2023-02-26] MEDS: lisinopril 10 MG TAB PO SCH (07:44)
[2023-02-26] MEDS: ACETAMINOPHEN 325 MG TAB PO PRN (07:46)
[2023-02-26] MEDS ORDERED: METOPROLOL TARTRATE 50 MG TAB PO SCH (09:15)
[2023-02-26] MEDS ORDERED: AMPHETAMINE ASP/SULF/DEXTRAMPH 20 MG TAB PO SCH (09:15)
[2023-02-26] MEDS ORDERED: AMPHETAMINE ASP/SULF/DEXTRAMPH 5 MG TAB PO SCH ×2 (09:45→21:00)
--- NOTE | 2023-02-26 11:24 | Discharge Summary ---
Date of Service February 26, 2023 Principal Diagnosis Uncontrolled hypertension, dizziness, nausea vomiting Discharge Exam General-alert and oriented x3, no fevers, no chills HEENT-head atraumatic and normocephalic, pupils equal and reactive to light, extraocular muscles intact Neck-no lymphadenopathy or thyromegaly, trachea midline Chest-clear to auscultation percussion. No rales wheezing or rhonchi Cardiac-regular rate and rhythm, normal S1 and S2 Abdomen-normal bowel sounds, nontender, no hepatosplenomegaly Extremities-no cyanosis, clubbing, or edema Neuro-vertigo symptoms with movement. Cranial nerves II through XII intact, motor and sensory function within normal limits, strength symmetrical , no focal deficits Psych-normal affect, normal mood Discharge Data Allergies Allergy/AdvReac Type Severity Reaction Status Date / Time No Known Allergies Allergy Unknown Verified 02/24/23 15:10 Consultations 02/24/23 16:21 ED Decision to Admit Stat Ordered Studies 02/24/23 10:58 CT angio head w con Stat CT angio neck with con Stat CT head/brain wo con Stat 02/24/23 16:49 MR brain wo con Urgent 02/25/23 06:00 MRI brain [MR brain IAC wo/w con] Routine Hospital Course (1) Dizziness: Suspected acute labyrinthitis has been ruled out. Meclizine has been discontinued and steroids have been discontinued. No CVA seen on brain MRI scan. Head CT scan on admission and head and neck CTA are negative. (2) Elevated troponin: No trending. No evidence of acute coronary syndrome. We will follow (3) Hypertension: Lisinopril started but ineffective. This has been switched to metoprolol. Plan Discharge to home today, February 26. He needs to follow-up with a PCP within 1 we ek. Total Time Total Time Spent Total Time Spent (In Minutes): 40 minutes Discharge Plan Discharge Items Patient Disposition: Home - Self-Care Reason For Visit: DIZZINESS, NAUSEA, VOMITING Discharge Diagnosis: Uncontrolled hypertension, dizziness Activity: Resume your previous activity Non-emergency contact: Primary Care Provider Call non-emergency contact if: you have any medication questions Follow-up/Referrals: PCP,NO [Primary Care Provider] - Diet: Regular and Heart Healthy Addtl Attending Provider Instructions: Metoprolol has been started for blood pressure and heart rate control. Adderall has been restarted. Follow-up with a primary care provider within 1 week Pending Studies at Discharge: No Stand-Alone Forms: [facility], Smoking Cessation Medications and DC Order Prescriptions: New metoprolol tartrate 50 mg Tablet 50 mg PO BID Qty: 60 0RF dextroamphetamine-amphetamine 5 mg Tablet 5 mg PO BID Qty: 60 0RF Discharge Orders: Discharge Order (Routine); Ordered 02/26/23 Ordered By: Juanjose Taylor Admission Data Admit Date/Time: 02/24/23 16:28 Attending Provider: Juanjose Taylor Admit Provider: Yury Harper Primary Care Provider: PCP,NO Other Providers: Yury Harper Other Interventions: Discharge Summary Assessment (RN) Last Done: 02/26/23 10:38 Coding Level of Care Code 91039 INP/OBS DISCH >30 MIN Diagnoses Dizziness R42 Elevated troponin R77.8 Hypertension I10
[2023-02-26] MEDS ORDERED: STROKE PATIENT DISCHARGE STA (11:28)
== END 2023-02-26 12:20 | disposition home or self-care (01) ==
LOC: EDINP 10:14 → ED 10:14 → SUATTDRO 16:28 → 2W 19:41

== ENCOUNTER 2024-01-04 14:26 | Inpatient (IN) ==
--- NOTE | 2024-01-04 14:31 | ED Triage Note ---
Date of Service January 04, 2024 Provider in Triage Author: Shanti Dean History of Present Illness This patient was briefly evaluated while in triage. An abbreviated physical exam was performed. This patient is a 58-year-old Male who presents to the ED for evaluation admitted with flu A and pneumonia at an outside hospital last week (d/c last Wednesday) hx of CHF - does not take cardiac medications sharp chest pain 2 days ago, SOB, coughing up blood tinged mucus, pain with deep breathing Physical Exam GENERAL: NAD CARDIOVASCULAR: RRR RESPIRATORY: CTA ABDOMEN: BS x 4. Nontender to palpation. Initial orders for labs and / or imaging were placed and patient was placed in the waiting area until a bed is available. Please see further documentation for the full ED course.
--- NOTE | 2024-01-04 15:03 | XRay Report ---
XR chest 2V PA/lateral CLINICAL HISTORY: Dyspnea TECHNIQUE: 2 views of the chest were obtained. Comparison: Comparison is made to chest radiograph of 02/24/2023 FINDINGS: No lines and tubes are seen. The cardiomediastinal silhouette is normal. The lungs are clear. No evid ence of pleural effusion or pneumothorax. IMPRESSION: No acute abnormalities and in particular no radiographic evidence of pneumonia. ACT 112: Negative or not required by law. Electronically signed by: Abelardo Paris M.D. 01/04/2024 3:02 PM
[2024-01-04 16:06] LABS: Basophils # (auto) 0.03 K/uL (0.00-0.20); Basophils % (auto) 0.6 %; Eosinophils % (auto) 5.6 %; Hematocrit (blood only) 46.9 % (42.0-52.0); Hemoglobin 14.6 g/dl (14.0-18.0); Immature Granulocytes # (auto) 0.02 K/uL (0.01-0.20); Immature Granulocytes % (auto) 0.4 %; Lymphocytes % (auto) 31.7 %; Mean Corpuscular Hemoglobin 26.5 pg (25.0-34.0); Mean Corpuscular Hgb Conc 31.1 g/dL (32.0-36.0); Mean Corpuscular Volume 85.3 fL (80.0-100.0); Mean Platelet Volume 8.9 fL (9.4-12.4); Monocytes # (auto) 0.64 K/uL (0.11-0.59); Monocytes % (auto) 11.9 %; Neutrophils # (auto) 2.68 K/uL (1.40-6.50); Neutrophils % (auto) 49.8 %; Platelet Count 375 K/uL (130-400); RDW Coefficient of Variation 12.7 % (11.5-14.5); RDW Standard Deviation 39.1 fL (36.4-46.3); White Blood Count 5.37 K/ul (4.8-10.8)
[2024-01-04 16:22] LABS: Albumin Globulin Ratio 1.5 (0.9-2); Albumin Level 4.1 gm/dl (3.4-5.0); Bilirubin,Total 0.3 mg/dl (0.2-1.0); Calcium 9.4 mg/dl (8.6-10.3); Creatinine Clr Calc Pharmacy 96.5 ml/min; Est GFR (African American) 108.8 ml/min; Est GFR (Non-African American) 93.9 ml/min; Globulin 2.7 gm/dl (2.5-4.0); Potassium 3.9 mmol/L (3.5-5.1); Total Protein 6.8 gm/dl (6.0-8.3)
[2024-01-04 16:26] LABS: Troponin I High Sensitivity 30.1 pg/ml (0-20)
[2024-01-04 16:31] LABS: D Dimer 250 ug/L FEU (0-500); INR 0.9 (0.9-1.1); Partial Thromboplastin Ratio 0.9; Partial Thromboplastin Time 26 Seconds (21-31); Prothrombin Time 10.1 Seconds (9.0-12.0)
--- NOTE | 2024-01-04 16:46 | Emergency Department Note ---
Impression & Plan Chest pain, Elevated troponin, Dyspnea, Elevated brain natriuretic peptide (BNP) level, Influenza A ED Provider Note ED Provider Note NAME: MANFRED PEREZ AGE:58 SEX: Male : 1965 ARRIVES VIA: Private vehicle INFORMANT: Patient ED PROVIDER(s): Peace Pimentel DO CHIEF COMPLAINT: Chest pain, shortness of breath HPI: This is a 58-year-old male presents emergency department with family at bedside due to concern for increased chest pain and shortness of breath. Patient was admitted last week at an outside facility and diagnosed with influenza A and pneumonia. Family states he was hospitalized for 4 days and then discharged last Wednesday. They state he was sent home with Tamiflu and antibiotics which she finished. Family states he was resting, able to eat and drink, and still had the original lingering symptoms which included fatigue, body aches, weakness, nausea and vomiting, cough, and shortness of breath although he did slowly seem to be getting better until today. Today he complained of worsening shortness of breath and chest pain, increased fatigue and bodyaches. Family member states he has a history 5 years ago of having CHF following a bout of bronchitis. He has been noncompliant with his medications since then although he did see a receiving dock checker in [place]. She states during his admission last week he did have an echo which showed an ejection fraction of 33%. Patient also notes he has occasionally seen blood in the sputum. Patient is supposed to be on carvedilol, spironolactone, amlodipine, lisinopril, hydralazine, and diuretic as needed per family. PAST MEDICAL HISTORY:See Below PAST SURGICAL HISTORY:See Below FAMILY HISTORY:See Below SOCIAL HISTORY:See Below HOME MEDICATIONS:See Below ALLERGIES:See Below VITALS:See Below PHYSICAL EXAMINATION: GENERAL: alert, well appearing, well nourished, no distress, non-toxic EYE EXAM: normal conjunctiva, PERRL and EOM's grossly intact OROPHARYNX: no exudate, no erythema, lips, buccal mucosa, and tongue normal and mucous membranes are moist NECK: supple, no nuchal rigidity, no adenopathy, non-tender LUNGS: Clear to auscultation. Normal chest wall mechanics, no w/r/r HEART: no murmurs, S1 normal and S2 normal ABDOMEN: abdomen soft, non-tender, normo-active bowel sounds, no masses, no rebound or guarding. BACK: Back is symmetrical on inspection and there is no deformity, no midline tenderness, no CVA tenderness. SKIN: no rashes, petechiae, orbruising UPPER EXTREMITIES: upper extremities are grossly normal. FROM, nml pulses b/l. LOWER EXTREMITIES: No pitting edema. FROM, nml pulses b/l. NEURO EXAM: Normal sensorium, cranial nerves II-XII grossly intact, normal speech, no facial droop,nogross weakness of arms, no gross weakness of legs. Gross sensation intact. No ataxia. Vital Signs: reviewed and remarkable Differential Diagnosis: pneumonia, bronchitis, COPD/Asthma exacerbation, pneumothorax, pulmonary embolism, congestive heart failure, acute coronary syndrome, as well as others were considered MEDICAL DECISION MAKING: This is a 58-year-old male presents emergency room due to increased chest pain and shortness of breath. Patient with recent diagnosis of influenza and pneumonia and hospitalization at an outside facility. Patient was afebrile vital signs stable on arrival here. Labs drawn and sent, IV established, EKG and chest x-ray performed bedside interpreted by me. Patient initially seen in a triage area as there were no available regular ER rooms. Once available patient was also monitored on telemetry. Patient was given IV Tylenol, IV Pepcid, IV Lasix, IV Decadron, and a Xopenex nebulizer treatment. Patient's troponin mildly elevated and BNP more markedly elevated. Patient with remote history of CHF. We did attempt to obtain records from the outside hospital however none were ever faxed to us. It is unclear if the patient's recent diagnosis of influenza pneumonia could have pushed the patient towards heart failure or contributed to a pericarditis/myocarditis. Patient was sent for CT angiography additionally out of precaution and was noted to have some residual infectious/inflammatory changes, no evidence of PE, no pericardial effusion, no evidence of pleural effusion or pulmonary edema. Case discussed with hospitalist team for additional evaluation and management. Consultation(s): 1950: Discussed with Dr. Schneider, [place] hospitalist team, for additional evaluation and mgmt. ER Treatment Provided: See below Diagnostics Interpreted By Me: -ECG: Normal sinus at 70, normal axis, normal intervals, inverted T waves noted in V4 through V6 as well as aVL, baseline artifact noted; EKG changes were present on a prior from February 24, 2023 although are more pronounced today -Cardiac Monitoring: An order was placed for continuous cardiac monitoring. The monitor shows a rate of 70 with normal sinus rhythm. -Laboratory studies: As stated above and show below. -Imaging studies: X-ray Chest: A single view study of the chest was reviewed and was negative for cardiomegaly, focal infiltrate, effusion, pulmonary edema, or wide mediastinum. Triage Nursing Note Reviewed Prior/Outside Records Reviewed Past Med/Surg History Medical History Noncompliance Hypertension Social History Smoking Status: Current some day smoker Do You Dip or Chew Tobacco: Yes; Hx Alcohol Use: No Hx Substance Use: No Preferred Language: Prydein[place] Communication Ability: Effective Communication Ability Comment: [facility] Order Management Specialist Required: No Beliefs That Will Affect Care: None Current Living Situation: Spouse Feels Safe at Home: Yes Assistive Devices: None Allergies Allergies Allergy/AdvReac Type Severity Reaction Status Date / Time No Known Allergies Allergy Unknown Verified 01/04/24 17:38 Home Meds Home Medications Medication Instructions Recorded Confirmed No Known Home Medications 01/04/24 01/04/24 Results & Data (ED) Vital Signs Vital Signs - 24 hr 01/04/24 14:29 01/04/24 18:04 01/04/24 18:07 Temperature 36.8 C Temperature Source Temporal Artery Scan Pulse Rate 73 71 Pulse Rate [Apical] 71 Respiratory Rate 20 20 18 Respiratory Effort / Characteristics Non-Labored Spontaneous Respiratory Depth Normal Blood Pressure 163/109 H Blood Pressure [Right Arm] 154/101 H Blood Pressure Mean 127 Blood Pressure Mean [Right Arm] 118 Pulse Oximetry 98 99 99 Oxygen Delivery Method Room Air Sepsis Recent Fever Within 48 Hours No Sepsis New/Unexplained Change in Mental Status No Sepsis Action Taken by Nursing No Action Required 01/04/24 20:00 Temperature Temperature Source Pulse Rate Pulse Rate [Apical] 66 Respiratory Rate 16 Respiratory Effort / Characteristics Respiratory Depth Blood Pressure Blood Pressure [Right Arm] 147/97 H Blood Pressure Mean Blood Pressure Mean [Right Arm] 113 Pulse Oximetry 97 Oxygen Delivery Method Room Air Sepsis Recent Fever Within 48 Hours Sepsis New/Unexplained Change in Mental Status Sepsis Action Taken by Nursing Laboratory Data 01/04/24 15:29 01/04/24 15:29 Lab Results 01/04/24 01/04/24 01/04/24 Range/Units 15:29 17:46 18:30 WBC 5.37 (4.8-10.8) K/ul RBC 5.50 (4.70-6.10) M/uL Hgb 14.6 (14.0-18.0) g/dl Hct 46.9 (42.0-52.0) % MCV 85.3 (80.0-100.0) fL MCH 26.5 (25.0-34.0) pg MCHC 31.1 L (32.0-36.0) g/dL RDW Std Deviation 39.1 (36.4-46.3) fL RDW Coeff of Eleazar 12.7 (11.5-14.5) % Plt Count 375 (130-400) K/uL MPV 8.9 L (9.4-12.4) fL Immature Gran % (Auto) 0.4 % Neut % (Auto) 49.8 % Lymph % (Auto) 31.7 % Starke % (Auto) 11.9 % Eos % (Auto) 5.6 % Baso % (Auto) 0.6 % Neut # (Auto) 2.68 (1.40-6.50) K/uL Lymph # (Auto) 1.70 (1.20-3.40) K/uL Starke # (Auto) 0.64 H (0.11-0.59) K/uL Eos # (Auto) 0.30 (0.00-0.50) K/uL Baso # (Auto) 0.03 (0.00-0.20) K/uL Immature Gran # (Auto) 0.02 (0.01-0.20) K/uL PT 10.1 (9.0-12.0) Seconds INR 0.9 (0.9-1.1) APTT 26 (21-31) Seconds PTT Ratio 0.9 D-Dimer 250 (0-500) ug/L FEU Sodium 143 (136-145) mmol/L Potassium 3.9 (3.5-5.1) mmol/L Chloride 107 (98-107) mmol/L Carbon Dioxide 30 (21-32) mmol/L Anion Gap 6 (3-11) BUN 20 (6-23) mg/dl Creatinine 0.91 (0.6-1.4) mg/dl Est Cr Clr Drug Dosing 96.5 ml/min Est GFR ( Amer) 108.8 ml/min Est GFR (Non-Af Amer) 93.9 ml/min BUN/Creatinine Ratio 22.0 H (10-20) Glucose 111 H (70-99(Fasting)) mg/dl Calcium 9.4 (8.6-10.3) mg/dl Total Bilirubin 0.3 (0.2-1.0) mg/dl AST 27 (13-39) U/L ALT 42 (7-52) U/L Alkaline Phosphatase 93 (34-104) U/L Troponin I High Sens 30.1 H 31.4 H (0-20) pg/ml B-Natriuretic Peptide 626 H (0-100) pg/ml Total Protein 6.8 (6.0-8.3) gm/dl Albumin 4.1 (3.4-5.0) gm/dl Globulin 2.7 (2.5-4.0) gm/dl Albumin/Globulin Ratio 1.5 (0.9-2) Urine Color Yellow Urine Appearance Clear (Clear) Urine pH 6.0 (4.5-7.5) Ur Specific [place] 1.016 (1.000-1.030) Urine Protein Negative (Negative) Urine Glucose (UA) Negative (Negative) Urine Ketones Negative (Negative) Urine Blood Negative (Negative) Urine Nitrite Negative (Negative) Urine Bilirubin Negative (Negative) Urine Urobilinogen Negative (Negative) Ur Leukocyte Esterase Negative (Negative) Nasal Influ A H1 2008 PCR DETECTED A (NotDetected) Adenovirus (PCR) Not Detected (NotDetected) B. pertussis DNA (PCR) Not Detected (NotDetected) B.parapertussis DNA PCR Not Detected (NotDetected) C. pneumoniae DNA (PCR) Not Detected (NotDetected) Coronavirus OC43 (PCR) Not Detected (NotDetected) Coronavirus HKU1 (PCR) Not Detected (NotDetected) Coronavirus 229E (PCR) Not Detected (NotDetected) SARS-CoV-2 (PCR) Not Detected (NotDetected) Coronavirus NL63 (PCR) Not Detected (NotDetected) Human Metapneumovir PCR Not Detected (NotDetected) Influenza Type B (PCR) Not Detected (NotDetected) M. pneumoniae (PCR) Not Detected (NotDetected) Parainfluenza 1 (PCR) Not Detected (NotDetected) Parainfluenza 2 (PCR) Not Detected (NotDetected) Parainfluenza 3 (PCR) Not Detected (NotDetected) Parainfluenza 4 (PCR) Not Detected (NotDetected) RSV (PCR) Not Detected (NotDetected) Entero/Rhino (PCR) Not Detected (NotDetected) Administered Medications Discontinued Medications Dexamethasone Sodium Phosphate (DexamethasonePf 10 Mg/Ml Vial) 10 mg IV NOW ONE Stop: 01/04/24 19:58 Last Admin: 01/04/24 20:59 Dose: 10 mg Documented By: ISMA Furosemide (Furosemide Inj 20 Mg/2 Ml Vial) 20 mg IV ONE ONE Stop: 01/04/24 17:09 Last Admin: 01/04/24 18:03 Dose: 20 mg Documented By: ISMA Acetaminophen (Ofirmev) 1,000 mg in 100 mls @ 400 mls/hr IV NOW STA Stop: 01/04/24 17:22 Last Infusion: 01/04/24 18:29 Dose: Infused Documented By: Admin: 01/04/24 18:04 Dose: 400 mls/hr Documented By: ISMA Ioversol (Optiray 320 125ml) 117 ml IV ONCE ONE Stop: 01/04/24 18:41 Last Admin: 01/04/24 18:40 Dose: 117 ml Documented By: JAGUAR Levalbuterol HCl (Levalbuterol 1.25 Mg/3 Ml Neb) 1.25 mg NEB NOW STA Stop: 01/04/24 17:19 Last Admin: 01/04/24 18:04 Dose: 1.25 mg Documented By: ISMA Morphine Sulfate (Morphine Sulfate 2 Mg/Ml Carp) 1 mg IV NOW STA Stop: 01/04/24 20:21 Last Admin: 01/04/24 20:59 Dose: 1 mg Documented By: ISMA Imaging Data Radiologist's Impression: Chest X-Ray 01/04/24 14:31 XR chest 2V PA/lateral CLINICAL HISTORY: Dyspnea TECHNIQUE: 2 views of the chest were obtained. Comparison: Comparison is made to chest radiograph of 02/24/2023 FINDINGS: No lines and tubes are seen. The cardiomediastinal silhouette is normal. The lungs are clear. No evidence of pleural effusion or pneumothorax. IMPRESSION: No acute abnormalities and in particular no radiographic evidence of pneumonia. ACT 112: Negative or not required by law. Electronically signed by: Abelardo Paris M.D. 01/04/2024 3:02 PM Chest CTA 01/04/24 17:18 CT angio chest PE protocol CLINICAL HISTORY: PE TECHNIQUE: Multidetector row helical CT of the chest was performed with angiographic protocol. Coronal and sagittal reformations were obtained. Coronal and sagittal MIPS were obtained from the axial data set and were submitted for review. Automated dose lowering techniques and/or adjustment according to patient size were utilized for this exam. CT DOSE: 907.25 mGy.cm Comparison: None available at the time of this dictation. FINDINGS: Lungs and pleura: Tree in bud nodularity is seen in the right lung. Heart and pericardium: Cardiomegaly is seen with biatrial enlargement. Vessels: No evidence of pulmonary embolism. Mediastinum and belia: Mediastinal nodes measure up to 13 mm in diameter. Chest wall and lower neck: Unremarkable. Abdomen: A hiatal hernia is seen. Bones: Degenerative changes in the thoracic spine. IMPRESSION: 1. No pulmonary embolus. 2. Tree in bud nodularity and mediastinal lymphadenopathy compatible with infectious/inflammatory process. ACT 112: Negative or not required by law. Electronically signed by: Abelardo Paris M.D. 01/04/2024 7:11 PM Discharge Plan Visit Data Chief Complaint: Illness Stated Complaint: CHEST PAIN, TROUBLE BREATHING, PNEUMONIA 1 WEEK AG ED Provider: Peace Pimentel Discharge Problem: Chest pain, Elevated troponin, Dyspnea, Elevated brain natriuretic peptide (BNP) level, Influenza A Discharge Instructions Interventions: ED Discharge Assessment Last Done: 01/04/24 23:42
[2024-01-04 16:48] LABS: Adenovirus PCR Not Detected (NotDetected); Bordetella parapertussis PCR Not Detected (NotDetected); Bordetella pertussis PCR Not Detected (NotDetected); Chlamydia pneumoniae PCR Not Detected (NotDetected); Coronavirus 229E PCR Not Detected (NotDetected); Coronavirus CoV-2 (COVID19)PCR Not Detected (NotDetected); Coronavirus HKU1 PCR Not Detected (NotDetected); Coronavirus NL63 PCR Not Detected (NotDetected); Coronavirus OC43PCR Not Detected (NotDetected); Human Metapneumovirus PCR Not Detected (NotDetected); Influenza A (H1 2009) PCR DETECTED (NotDetected); Influenza B PCR Not Detected (NotDetected); Mycoplasma pneumoniae PCR Not Detected (NotDetected); Parainfluenza Virus 1 PCR Not Detected (NotDetected); Parainfluenza Virus 2 PCR Not Detected (NotDetected); Parainfluenza Virus 3 PCR Not Detected (NotDetected); Parainfluenza Virus 4 PCR Not Detected (NotDetected); Respiratory Syncytial VirusPCR Not Detected (NotDetected); Rhinovirus/Enterovirus PCR Not Detected (NotDetected)
--- OUTSIDE RECORDS SUMMARY | 2024-01-04 17:20 | External Medical Summary | Summary of Care ---
Author Name Unknown Organization [facility] Address [address] [place] [address] Phone [phone] Care Team Providers Care Fine Arts Instructor Name Role Phone John Stephens MD Primary Care Provider [phone]- [phone] Reason for Visit * Reason Onset Date Comments Appointment 12/20/2023 Encounter Details Date Type Department Care Team (Late st Contact Info) Description 12/20/2023 Telephone [facility] [address] [place] [address] Kellee Pérez RN Appointment Allergies No known active allergiesdocumented as of this encounter (statuses as of 12/29/2023) Medications Medication Sig Dispensed Refills Start Date End Date Status Lidocaine 4 % External Patch (Aspercreme) Place 1 Patch over 12 hours topically on the skin daily. 30 Patch 0 06/21/2023 Active Additional Information Patient not taking.Reported on 06/24/2023 Lisinopril 40 MG Oral Tablet Take 1 Tablet by mouth in the morning. 0 Active Metoprolol Tartrate 50 MG Oral Tablet (Lopressor) Take 1 Tablet by mouth in the morning and 1 Tablet before bedtime. 0 Active Amphetamine-Dextroa mphetamine 5 MG Oral Tablet (Adderall) Take 1 Tablet by mouth in the morning and 1 Tablet before bedtime. 0 Active documented as of this encounter (statuses as of 12/29/2023) Active Problems Problem Noted Date Diagnosed Date Chest pain 06/22/2023 Hearing loss 03/22/2006 documented as of this encounter (statuses as of 12/29/2023) Immunizations Name Administration Dates Next Due TDAP (age 10 and older)(Boostrix) 12/30/2021 documented as of this encounter Social History Tobacco Use Types Packs/Day Years Used Date Smoking Tobacco: Some Days Cigarettes Cigars Smokeless Tobacco: Never Comments:smokes occasionally . Alcohol Use Standard Drinks/Week Comments Yes 0 (1 standard drink = 0.6 oz pur e alcohol) socially, once a month. Sex and Gender Information Value Date Recorded Sex Assigned at Not on file Gender Identity Not on file Sexual Orientation Not on file Job Start Date Occupation Industry Not on file Not on file Not on file documented as of this encounter Miscellaneous Notes * Telephone Encounter - Kellee Pérez RN - 12/29/2023 1:50 PM EST Placed call out to patient [phone], no answer and VM not set up at this time. Patient is scheduled for office visit tomorrow, December 30, [address] Nuñez at 10am. Patient had reports of imaging in May 2023, although no physical images are available for review. Want to check if patient is bringing images with him. If not, we will postpone the office visit to another time. Kellee Pérez RN Cerebrovascular Nurse Navigator [facility] * Telephone Encounter - Kellee Pérez RN - 12/20/2023 2:11 PM EST Patient scheduled 11am for appt with Dr. Nuñez on 12/30. Tried to call to reschedule as change in providers schedule, called [phone], no answer and unable to provide VM. Moved to 10am same day. Kellee Pérez RN Cerebrovascular Nurse Navigator [facility] documented in this encounter Plan of Treatment Upcoming Encounters Date Type Department Care Team (Late st Contact Info) Description 12/30/2023 10:00 AM EST Office Visit Neurosurgery, [place] [address] [place] [address] Marek Nuñez MD [address] [place] [address] Health Maintenance Due Date Last Done Comments Hepatitis B (1 of 3 - 3-dose series) 1965 COVID-19 Vaccine (#1) 1965 Pneumococcal Vaccine: Pediatrics (0 to 5 Years) and At-Risk Patients (6 to 64 Years) (1 - PCV) 1973 Depression Screening 1979 HIV Screening 1982 Hepatitis C Screening 1985 Cologuard 2012 Fecal Occult Blood Test 2012 Sigmoidoscopy 2012 Zoster Vaccines (1 of 2) 2017 Colonoscopy 04/08/2019 04/08/2009, 05/10/2006 Colorectal Cancer Screening 04/08/2019 Influenza Vaccine (FLU shot) (#1) 2023 Lipid Panel 07/21/2026 07/21/2021, 03/27/2019 DTaP,Tdap,and Td Vaccines (2 - Td or Tdap) 12/30/2031 12/30/2021 GARDASIL-HPV IMMUNIZATION SERIES Aged Out No longer eligible b ased on patient's age to complete this topic MENINGOCOCCAL (MENACTRA/MENVEO) Aged Out No longer eligible b ased on patient's age to complete this topic documented as of this encounter Medical Devices Not on filedocumented as of this encounter Care Teams Fine Arts Instructor Relationship Specialty Start Date End Date John Stephens MD PCP - General 02/25/09 documented as of this encounter
--- OUTSIDE RECORDS SUMMARY | 2024-01-04 17:20 | External Medical Summary | Summary of Care ---
Author Name Unknown Organization [facility] Address [address] [place] [address] Phone [phone] Care Team Providers Care French Translator Name Role Phone John Stephens MD Primary Care Provider [phone]- [phone] Encounter Details Date Type Department Care Team Description 08/05/2023 Orders Only [facility] [address] [place] [address] Carola Baum MD [address] [place] [address] Encounter to establish care* Allergies No known active allergiesdocumented as of this encounter (statuses as of 08/05/2023) Medications Medication Sig Dispensed Refills Start Date [...] as of this encounter (statuses as of 08/05/2023) Active Problems Problem Noted Date Chest pain 06/22/2023 Hearing loss 03/22/2006 documented as of this encounter (statuses as of 08/05/2023) Immunizations Name Administration Dates Next Due TDAP (age 10 and older)(Boostrix) 12/30/2021 documented as of this encounter Social History Tobacco Use Types Packs/Day Years Used Date Smoking Tobacco: Some Days Cigarettes Cigars Smokeless Tobacco: Never Comments:smokes occasionally . Alcohol Use Standard Drinks/Week Comments Yes 0 (1 standard drink = 0.6 oz pur e alcohol) socially, once a month. Sex Assigned at Date Recorded Not on file Job Start Date Occupation Industry Not on file Not on file Not on file documented as of this encounter Plan of Treatment Upcoming Encounters Date Type Specialty Care Team Description 08/06/2023 Office Visit Cardiology Carola Baum MD [address], [place] [id number] 12/17/2023 Office Visit Gastroenterology Pia Roper CRNP [address] [place] [address] 12/30/2023 Office Visit Neurological Surgery Mraek Nuñez MD [address] [place] [address] Scheduled Orders Name Type Priority Associated Diagnoses Orde r Schedule EKG EKG Routine Encounter to establish care Expected: 08/06/2023 (Approximate), Expires: 08/05/2024 Health Maintenance Due Date Last Done Comments [...] Not on filedocumented as of this encounter Visit Diagnoses Diagnosis Encounter to establish care- Primary Other reasons for seeking consultation documented in this encounter Care Teams French Translator Relationship Specialty Start Date End Date John Stephens MD PCP - General 02/25/09 documented as of this encounter
--- OUTSIDE RECORDS SUMMARY | 2024-01-04 17:20 | External Medical Summary | Summary of Care ---
Author Name Unknown Organization [facility] Address [address] [place] [address] Phone [phone] Care Team Providers Care Armament Repairer Name Role Phone John Stephens MD Primary Care Provider +1- [phone] Reason for Visit * Reason Onset Date Comments STAIR Lung Nodule 06/22/2023 Lung Nodule Pr ogram Encounter Details Date Type Department Care Team Description 06/22/2023 Telephone STAIR LUNG NODULE [address] [place] [address] Program, Stair [address] [place] [address] STAIR Lung Nodule (Lung Nodule Program) Allergies No known active allergiesdocumented as of this encounter (statuses as of 07/12/2023) Medications Medication Sig Dispensed Refills Start Date End Date Status Lidocaine 4 % External Patch (Aspercreme) Place 1 Patch over 12 hours topically on the skin daily. 30 Patch 0 06/21/2023 Active Additional Information Patient not taking.Reported on 06/24/2023 documented as of this encounter (statuses as of 07/12/2023) Active Problems Problem Noted Date Chest pain 06/22/2023 Hearing loss 03/22/2006 documented as of this encounter (statuses as of 07/12/2023) Immunizations Name Administration Dates Next Due TDAP (age 10 and older)(Boostrix) 12/30/2021 documented as of this encounter Social History Tobacco Use Types Packs/Day Years Used Date Smoking Tobacco: Former Cigars Smokeless Tobacco: Never Tobacco Cessation:Counseling Given: Not Answered Comments:smokes occasionally. Alcohol Use Standard Drinks/Week Comments Yes 0 (1 standard drink = 0.6 oz pur e alcohol) socially, once a month. Sex Assigned at Date Recorded Not on file Job Start Date Occupation Industry Not on file Not on file Not on file documented as of this encounter Miscellaneous Notes * Telephone Encounter - Tracie Juares LPN - 07/12/2023 7:35 AM EDT Lung Nodule Referral Triaging - Communication to Patient Patient letter sent through [facility] or mail. Time spent: 10 minutes Tracie Juares LPN Coordinator STAIR (System to Track Abnormalities of Importance Reliably) [phone] Patient disenrolled from STAIR Program for Pulmonary Nodule - banner removed * Telephone Encounter - MYNOR Ac - 07/09/2023 5:32 PM EDT Lung Nodule Provider Review - Initial Clinical Summary: essentially never smoker. Presented to ED with chest pain Reviewed below Imaging Interpretation: CT - Pulmonary Embolism dated 06/21/23 Lung nodules: multiple Location: RUL and joyce fissural Characteristics: 5 mm RUL solid, remainder are joyce fissural Co-morbidity : no findings of emphysema or ILD Pulmonary Nodule Care Plan: No further follow-up needed - details below Details: There is a CT scan in chart dated 07/13/21 and the RUL nodule is seen and appears stable when compared with latest scan. He is never smoker with no personal history of cancer and no first degree relatives with lung cancer so low risk. The other nodules are < 6 mm and joyce fissural so most likely benign. No further imaging recommended per guidelines. 2. Non-Pulmonary Nodule Incidental Finding: none 3. Patient contacted to review recommendations and next steps: No, letter to be sent by STAIR Coordinator (no follow-up needed) 4. Message forwarded to STAIR Pool. Time spent: 25 minutes MYNOR Ac STABECKY (System to Track Abnormalities of Importance Reliably) * Telephone Encounter - Peace Boss LPN - 06/25/2023 9:49 AM EDT Lung Nodule Referral Triaging - Clinical Summary Name: Tristin Méndez Age: [age] year old Patient Identified by: Specialty Referral Questions: 1. Have you ever smoked Cigarettes? no - never smoked Occasional cigarette if drinking. 2. States Have you ever had Cancer? No 3. Do you have any first degree relatives (parent, sibling or child) who have or had lung cancer? No 4. Have you ever had any Chest X-Rays done outside of [facility] in the past 5 years? Yes; Where: [facility] and [facility] and [facility]; When: past 5 years 5. Have you ever had any CAT scans of your chest, abdomen or spine done outside of [facility] in thepast 5 years? Yes; Where: [facility] and [facility]; When: past 5 years 6. New patient to this specialty Next Steps: Assembly: CXR/Chest CT/Abdomen CT/Spine CT outside of [facility]: outside CXR/CT scan disk requested Ordering: Recent CT Chest (within 12 months): Ordered Message will be forwarded to [employer] Nodule Pool when necessary imaging is available for review. 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 Peace Boss LPN Coordinator STAIR (System to Track Abnormalities of Importance Reliably) Patient managed in STAIR Program for Pulmonary Nodule - banner added * Telephone Encounter - Peace Boss LPN - 06/24/2023 9:06 AM EDT Voicemail not set up * Telephone Encounter - Peace Boss LPN - 06/22/2023 8:47 AM EDT No answer no machine to enroll in STAIR documented in this encounter Plan of Treatment Upcoming Encounters Date Type Specialty Care Team Description 07/23/2023 Office Visit Family Medicine Davina Nelson PA-C [address] [place] [address] 08/06/2023 Office Visit Cardiology Carola Baum MD [address] [place] [address] 12/17/2023 Office Visit Gastroenterology Pia Roper CRNP [address] [place] [address] 12/30/2023 Office Visit Neurological Surgery Marek Nuñez MD [address] [place] [address] Health Maintenance Due Date Last Done Comments Hepatitis B (1 of 3 - 3-dose series) 1967 COVID-19 Vaccine (#1) 1967 Pneumococcal Vaccine: Pediatrics (0 to 5 Years) and At-Risk Patients (6 to 64 Years) (1 - PCV) 1973 Depression Screening, Annual for Pts 12 and Over 1979 HIV Screening 1982 Hepatitis C Screening [...] filedocumented as of this encounter Care Teams Armament Repairer Relationship Specialty Start Date End Date John Stephens MD PCP - General 02/25/09 documented as of this encounter
--- OUTSIDE RECORDS SUMMARY | 2024-01-04 17:20 | External Medical Summary | Summary of Care ---
Author Name Unknown Organization [facility] Address [address] [place] [address] Phone [phone] Care Team Providers Care Service Mechanic Name Role Phone John Stephens MD Primary Care Provider +1- [phone] Reason for Visit * Reason Onset Date Comments Appointment 12/20/2023 Encounter Details Date Type Department Care Team (Late st Contact Info) Description 12/20/2023 Telephone [facility] [address] [place] [address] Kellee Pérez RN Appointment Allergies No known active allergiesdocumented as of this encounter (statuses as of 12/20/2023) Medications Medication Sig Dispensed Refills Start Date [...] as of this encounter (statuses as of 12/20/2023) Active Problems Problem Noted Date Diagnosed Date Chest pain 06/22/2023 Hearing loss 03/22/2006 documented as of this encounter (statuses as of 12/20/2023) Immunizations Name Administration Dates Next Due TDAP [...] reschedule as change in providers schedule, called [phone], no answer and unable to provide VM. Moved to 10am same day. Kellee Pérez RN Cerebrovascular Nurse Navigator [facility] documented in this encounter Plan of Treatment Upcoming Encounters Date Type Department Care Team (Late st Contact Info) Description 12/30/2023 10:00 AM EST Office Visit [facility] [place] [address] [place] [address] Marek Nuñez MD [address] [place] [address] Health Maintenance Due Date Last Done Comments [...] filedocumented as of this encounter Care Teams Service Mechanic Relationship Specialty Start Date End Date John Stephens MD PCP - General 02/25/09 documented as of this encounter
--- OUTSIDE RECORDS SUMMARY | 2024-01-04 17:20 | External Medical Summary | Summary of Care ---
Author Name Unknown Organization [facility] Address [address] [place] [address] Phone [phone] Care Team Providers Care Assembler Metal Building Name Role Phone John Stephens MD Primary Care Provider +1- [phone] Reason for Visit * Reason Onset Date Comments STAIR Lung Nodule 06/22/2023 Lung Nodule Pr ogram Encounter Details Date Type Department Care Team Description 06/22/2023 Telephone STAIR LUNG NODULE [address] [place] [address] Program, Stair [address] [place] [address] STAIR Lung Nodule (Lung Nodule Program) Allergies No known active allergiesdocumented as of this encounter (statuses as of 07/09/2023) Medications Medication Sig Dispensed Refills Start Date End Date Status Lidocaine 4 % External Patch (Aspercreme) Place 1 Patch over 12 hours topically on the skin daily. 30 Patch 0 06/21/2023 Active Additional Information Patient not taking.Reported on 06/24/2023 documented as of this encounter (statuses as of 07/09/2023) Active Problems Problem Noted Date Chest pain 06/22/2023 Hearing loss 03/22/2006 documented as of this encounter (statuses as of 07/09/2023) Immunizations Name Administration Dates Next Due TDAP [...] encounter Miscellaneous Notes * Telephone Encounter - MYNOR Ac - [...] had any Chest X-Rays done outside of [facility] in the past 5 years? Yes; [facility]; When: past 5 years 5. Have you ever had any CAT scans of your chest, abdomen or spine done outside of [facility] in thepast 5 years? Yes; Where: [facility] and [facility] and [place]; When: past 5 years 6. New patient to this specialty Next Steps: Assembly: CXR/Chest CT/Abdomen CT/Spine CT outside of [facility]: outside CXR/CT scan disk requested Ordering: Recent CT Chest (within 12 months): Ordered Message will be forwarded to [facility]ER[facility] INSTRUMENT TECHNICIAN Nodule Pool when necessary imaging is available for review. 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 [facility] Peace Boss LPN Coordinator STAIR (System to [...] Office Visit Family Medicine Davina Nelson PA-C [address] [place] [address] 08/06/2023 Office Visit Cardiology Carola Baum MD [address], [place] [id number] 12/17/2023 Office Visit Gastroenterology Pia Roper CRNP [address] [place] [address] 12/30/2023 Office Visit Neurological Surgery Marek Nuñez MD [address] [place] [address] Health Maintenance Due Date Last [...] filedocumented as of this encounter Care Teams Assembler Metal Building Relationship Specialty Start Date End Date John Stephens MD PCP - General 02/25/09 documented as of this encounter
--- OUTSIDE RECORDS SUMMARY | 2024-01-04 17:20 | External Medical Summary | Summary of Care ---
Author Name Unknown Organization [facility] Address [address] [place] [address] Phone [phone] Care Team Providers Care Cost Manager Name Role Phone John Stephens MD Primary Care Provider +1- [phone] Reason for Visit * Reason Onset Date Comments Appointment 12/20/2023 Encounter Details Date Type Department Care Team (Late st Contact Info) Description 12/20/2023 Telephone [facility] [address] [place] [address] Kellee Pérez RN Appointment [...] PM EST Placed call out to patient [phone], no answer and VM not set up [...] time. Kellee Pérez RN Cerebrovascular Nurse Navigator [facility] * Telephone Encounter - Kellee Pérez RN - 12/20/2023 2:11 PM EST Patient scheduled 11am for appt with Dr. Nuñez on 12/30. Tried to call to reschedule as change in providers schedule, called [phone], no answer and unable to provide VM. Moved to 10am same day. Kellee Pérez RN Cerebrovascular Nurse Navigator [facility] documented in this encounter Plan of Treatment Upcoming Encounters Date Type Department Care Team (Late st Contact Info) Description 12/30/2023 10:00 AM EST Office Visit Neurosurgery, [place] [address] [place] [address] Marek Nuñez MD [address] [place] [address] Health Maintenance Due Date Last Done Comments [...] filedocumented as of this encounter Care Teams Cost Manager Relationship Specialty Start Date End Date John Stephens MD PCP - General 02/25/09 documented as of this encounter
--- OUTSIDE RECORDS SUMMARY | 2024-01-04 17:20 | External Medical Summary | Summary of Care ---
Author Name Unknown Organization [facility] Address [address] [place] [address] Phone [phone] Care Team Providers Care Immersion Metalcleaner Name Role Phone John Stephens MD Primary Care Provider +1- [phone] Reason for Visit * Reason Onset Date Comments Appointment 12/20/2023 Encounter Details Date Type Department Care Team (Late st Contact Info) Description 12/20/2023 Telephone [facility] [address] [place] [address] Kellee Pérez RN Appointment Allergies [...] encounter Miscellaneous Notes * Telephone Encounter - Trinity Jones OSA - 12/29/2023 2:29 PM EST Attempted to call [facility] Radiology department. Call went straight to voicemail. Left a detailed message on a secure and identifiable voicemail to call me back and to push the CTA Head/Neck dated 06/19/23 to [employer]. * Telephone Encounter - Kellee Pérez RN - 12/29/2023 1:50 PM EST Placed call out to patient [phone], no answer and VM not set up [...] time. Kellee Pérez RN Cerebrovascular Nurse Navigator [facility] * Telephone Encounter - Kellee Pérez RN - 12/20/2023 2:11 PM EST Patient scheduled 11am for appt with Dr. Nuñez on 12/30. Tried to call to reschedule as change in providers schedule, called [phone], no answer and unable to provide VM. Moved to 10am same day. Kellee Elisa, RN Cerebrovascular Nurse Navigator [facility] documented in this encounter Plan of Treatment Upcoming Encounters Date Type Department Care Team (Late st Contact Info) Description 12/30/2023 10:00 AM EST Office Visit Neurosurgery, [place] [address] [place] [address] Marek Nuñez MD [address] [place] [id number] Health Maintenance Due Date Last Done Comments [...] filedocumented as of this encounter Care Teams Immersion Metalcleaner Relationship Specialty Start Date End Date John Stephens MD PCP - General 02/25/09 documented as of this encounter
[2024-01-04] MEDS: FUROSEMIDE INJ 20 MG/2 ML VIAL IV ONE (18:03)
[2024-01-04] MEDS: ACETAMINOPHEN 1,000 MG/100 ML VIAL IV STA (18:04)
[2024-01-04] MEDS: LEVALBUTEROL 1.25 MG/3 ML NEB NEB STA (18:04)
[2024-01-04 18:30] LABS: Troponin I High Sensitivity 31.4 pg/ml (0-20)
[2024-01-04] MEDS: OPTIRAY 320 125ml IV ONE (18:40)
[2024-01-04 18:45] LABS: Appearance Urine Clear (Clear); Bilirubin Urine Negative (Negative); Blood Urine Negative (Negative); Color Urine Yellow; Glucose Urine UA Negative (Negative); Ketones Urine Negative (Negative); Leukocyte Esterase Urine Negative (Negative); Nitrite Urine Negative (Negative); Protein Urine Negative (Negative); Specific Gravity Urine 1.016 (1.000-1.030); Urobilinogen Urine Negative (Negative)
--- NOTE | 2024-01-04 19:14 | CT Scan Report ---
CT angio chest PE protocol CLINICAL HISTORY: PE TECHNIQUE: Multidetector row helical CT of the chest was performed with angiographic protocol. Waldrop l and sagittal reformations were obtained. Coronal and sagittal MIPS were obtained from the axial sharonda a set and were submitted for review. Automated dose lowering techniques and/or adjustment according to patient size were utilized for this exam. CT DOSE: 907.25 mGy.cm Comparison: None available at the time of this dictation. FINDINGS: Lungs and pleura: Tree in bud nodularity is seen in the right lung. Heart and pericardium: Cardiomegaly is seen with biatrial enlargement. Vessels: No evidence of pulmonary embolism. Mediastinum and belia: Mediastinal nodes measure up to 13 mm in diameter. Chest wall and lower neck: Unremarkable. Abdomen: A hiatal hernia is seen. Bones: Degenerative changes in the thoracic spine. IMPRESSION: 1. No pulmonary embolus. 2. Tree in bud nodularity and mediastinal lymphadenopathy compatible with infectious/inflammatory pr ocess. ACT 112: Negative or not required by law. Electronically signed by: Abelardo Paris M.D. 01/04/2024 7:11 PM
--- NOTE | 2024-01-04 20:27 | History & Physical Report ---
Date of Service January 04, 2024 Assessment & Plan (1) Influenza A: Plan: Patient positive for influenza A. Initially tested positive last week. He is afebrile. Infectious/inflammatory findings noted on CT -Admit to medical with telemetry -Maintain isolation precautions -Empiric antibiotics with Azithromycin (2) Elevated troponin: Plan: With reports of some chest discomfort -Telemetry monitoring -Trend troponin -Check 2D echo (3) CHF (congestive heart failure): Plan: Details of patient's CHF are unclear. Family reports a depressed EF of 33% during last echo. Patient formerly followed with Cardiology but has not seen them or taken any cardiac medications for some time. I discussed with him briefly the benefit of medication compliance and possible improvement in EF and cardiac remodeling in CHF. He does not wish to resume his medications at this time but is open to reestablishing with a Spark Plug Tester. He does not appear to be overtly volume overloaded but does reports some puffiness in his face and legs. -Check 2D echo -Monitor I/Os -Monitor daily weights -Consider repeat Lasix dosing IV F/E/N - diuresis with Lasix. Electrolytes WNL. Heart healthy diet as tolerated Ppx - Low risk for DVT. Encourage ambulation. Consider chemoprophylaxis is patient's stay is prolonged Code - Full per discussion with patient at time of admission Dispo- Observation to medical with telemetry History of Present Illness Chief Complaint: chest pain and shortness of breath Primary Care Provider: NO PCP Tristin Méndez is a 58yo male with history of HTN and CHF presenting with chest pain and shortness of breath. Patient was diagnosed with Influenza A 1 week ago. He was admitted to an outside facility for 4 days and reportedly treated with antibiotics, supplemental oxygen and Tamiflu (records unavailable). He was discharged home on antibiotics which he completed. He reports feeling better until today when he developed worsening shortness of breath, chest pain and fatigue. His chest pain is anterior left sided, constant, fairly severe 8/10 pressure. Non-pleuritic, non-exertional and non-positional. No aggravating or alleviating factors identified. He has some shortness of breath as well as intermittent nausea. Otherwise denies fever, chills, abdominal pain, vomiting or diarrhea. No falls or trauma. No edema or orthopnea. Patient reportedly with CHF - Echo performed at an outside facility recently, EF of 33% by patient's . Patient followed with Cardiology in the past and was on several medications - Carvedilol, Spironolactone, Amlodipine, Lisinopril and Hydralazine. He reports not taking these medications for many months because they do not like how they make him feel. In the ER he is afebrile, hypertensive otherwise HD stable ER Course: Lasix 20mg IV - has since filled 2 urinals full of clear, yellow urine Xopenex Tylenol Allergies Allergy/AdvReac Type Severity Reaction Status Date / Time No Known Allergies Allergy Unknown Verified 01/04/24 17:38 Home Medications Medication Instructions Recorded Confirmed Type No Known Home Medications 01/04/24 01/04/24 History Past Med/Surg History Medical History (Updated 01/05/24 @ 00:54 by Mari Schneider DO) Carotid artery aneurysm CHF (congestive heart failure) Noncompliance Hypertension Surgical History (Updated 01/05/24 @ 00:54 by Mari Schneider DO) History of surgery on lower extremity Social History Smoking Status: Current some day smoker Do You Dip or Chew Tobacco: Yes; Hx Alcohol Use: No Hx Substance Use: No Preferred Language: Estonian Communication Ability: Effective Communication Ability Comment: [facility] Filtration Operator Required: No Beliefs That Will Affect Care: None Current Living Situation: Spouse Feels Safe at Home: Yes Assistive Devices: None Review of Systems Review of Systems: All systems reviewed & are unremarkable except as noted in HPI & below Physical Exam Physical Exam: General: patient resting comfortably, NAD, non-toxic in appearance, AA&O x 4, hard of hearing Skin: warm, dry, intact, no rashes or lesions HEENT: NC/AT, PERRL, EOMI, anicteric sclera, conjunctiva without injection, external ear normal to inspection and nontender, nares patent, moist mucus membranes, dentition intact, no oropharyngeal lesions, neck supple, trachea midline, no LAD, no thyromegaly, no JVD, no HJR Heart: +S1/S2, regular, no m/r/g Lungs: equal air entry bilaterally, faint focal wheezing in right mid-lung field Abd: +BS, soft, NT/ND, no masses/organomegaly/ascites Ext: warm, 2+ pulses in UE/LE bilaterally, no clubbing/cyanosis or edema Neuro: nonfocal, patient AA&O x 4, speech intact, no facial droop, moving all extremities on command with equal strength 5/5 Results & Data Results & Data Vital Signs (Past 12 Hours) Vital Signs Temp Pulse Pulse Resp BP BP Pulse Ox 01/04/24 20:00 66 16 147/97 H 97 01/04/24 18:07 71 18 154/101 H 99 01/04/24 18:04 71 20 99 01/04/24 14:29 36.8 C 73 20 163/109 H 98 O2 Del Method 01/04/24 20:00 Room Air 01/04/24 18:07 01/04/24 18:04 01/04/24 14:29 Room Air Laboratory Results Laboratory Results WBC 5.37 K/ul (4.8-10.8) 01/04/24 15: RBC 5.50 M/uL (4.70-6.10) 01/04/24 15: Hgb 14.6 g/dl (14.0-18.0) 01/04/24 15: Hct 46.9 % (42.0-52.0) 01/04/24 15: MCV 85.3 fL (80.0-100.0) 01/04/24 15: MCH 26.5 pg (25.0-34.0) 01/04/24 15: MCHC 31.1 g/dL (32.0-36.0) L 01/04/24 15: RDW Std Deviation 39.1 fL (36.4-46.3) 01/04/24 15: RDW Coeff of Eleazar 12.7 % (11.5-14.5) 01/04/24 15: Plt Count 375 K/uL (130-400) 01/04/24 15: MPV 8.9 fL (9.4-12.4) L 01/04/24 15: Immature Gran % (Auto) 0.4 % 01/04/24: Neut % (Auto) 49.8 % 01/04/24: Lymph % (Auto) 31.7 % 01/04/24: Chase % (Auto) 11.9 % 01/04/24: Eos % (Auto) 5.6 % 01/04/24: Baso % (Auto) 0.6 % 01/04/24: Neut # (Auto) 2.68 K/uL (1.40-6.50) 01/04/24: Lymph # (Auto) 1.70 K/uL (1.20-3.40) 01/04/24: Chase # (Auto) 0.64 K/uL (0.11-0.59) H 01/04/24: Eos # (Auto) 0.30 K/uL (0.00-0.50) 01/04/24: Baso # (Auto) 0.03 K/uL (0.00-0.20) 01/04/24 Immature Gran # (Auto) 0.02 K/uL (0.01-0.20) 01/04/24 PT 10.1 Seconds (9.0-12.0) 01/04/24: INR 0.9 (0.9-1.1) 01/04/24: APTT 26 Seconds (21-31) 01/04/24 PTT Ratio 0.9 01/04/24: D-Dimer 250 ug/L FEU (0-500) 01/04/24: Sodium 143 mmol/L (136-145) 01/04/24: Potassium 3.9 mmol/L (3.5-5.1) 01/04/24: Chloride 107 mmol/L (98-107) 01/04/24: Carbon Dioxide 30 mmol/L (21-32) 01/04/24: Anion Gap 6 (3-11) 01/04/24: BUN 20 mg/dl (6-23) 01/04/24: Creatinine 0.91 mg/dl (0.6-1.4) 01/04/24 Est Cr Clr Drug Dosing 96.5 ml/min 01/04/24 15: Est GFR ( Amer) 108.8 ml/min 01/04/24: Est GFR (Non-Af Amer) 93.9 ml/min 01/04/24 15:29 BUN/Creatinine Ratio 22.0 (10-20) H 01/04/24 15:29 Glucose 111 mg/dl (70-99(Fasting)) H 01/04/24 15:29 Calcium 9.4 mg/dl (8.6-10.3) 01/04/24 15: Phosphorus 4.2 mg/dl (2.5-4.9) 01/04/24 17:46 Magnesium 2.1 mg/dl (1.7-2.4) 01/04/24 17:46 Total Bilirubin 0.3 mg/dl (0.2-1.0) 01/04/24 15: AST 27 U/L (13-39) 01/04/24 15:29 ALT 42 U/L (7-52) 01/04/24 15: Alkaline Phosphatase 93 U/L (34-104) 01/04/24 15:29 Troponin I High Sens 31.4 pg/ml (0-20) H 01/04/24 17:46 B-Natriuretic Peptide 626 pg/ml (0-100) H 01/04/24 15:29 Total Protein 6.8 gm/dl (6.0-8.3) 01/04/24 15: Albumin 4.1 gm/dl (3.4-5.0) 01/04/24 15: Globulin 2.7 gm/dl (2.5-4.0) 01/04/24 15: Albumin/Globulin Ratio 1.5 (0.9-2) 01/04/24 15:29 Urine Color Yellow 01/04/24 18:30 Urine Appearance Clear (Clear) 01/04/24 18:30 Urine pH 6.0 (4.5-7.5) 01/04/24 18:30 Ur Specific [place] 1.016 (1.000-1.030) 01/04/24 18:30 Urine Protein Negative (Negative) 01/04/24 18:30 Urine Glucose (UA) Negative (Negative) 01/04/24 18:30 Urine Ketones Negative (Negative) 01/04/24 18:30 Urine Blood Negative (Negative) 01/04/24 18:30 Urine Nitrite Negative (Negative) 01/04/24 18:30 Urine Bilirubin Negative (Negative) 01/04/24 18:30 Urine Urobilinogen Negative (Negative) 01/04/24 18:30 Ur Leukocyte Esterase Negative (Negative) 01/04/24 18:30 Nasal Influ A H1 2009 PCR DETECTED (NotDetected) A 01/04/24 15:29 Adenovirus (PCR) Not Detected (NotDetected) 01/04/24 15:29 B. pertussis DNA (PCR) Not Detected (NotDetected) 01/04/24 15:29 B.parapertussis DNA PCR Not Detected (NotDetected) 01/04/24 15:29 C. pneumoniae DNA (PCR) Not Detected (NotDetected) 01/04/24 15:29 Coronavirus OC43 (PCR) Not Detected (NotDetected) 01/04/24 15:29 Coronavirus HKU1 (PCR) Not Detected (NotDetected) 01/04/24 15:29 Coronavirus 229E (PCR) Not Detected (NotDetected) 01/04/24 15:29 SARS-CoV-2 (PCR) Not Detected (NotDetected) 01/04/24 15:29 Coronavirus NL63 (PCR) Not Detected (NotDetected) 01/04/24 15:29 Human Metapneumovir PCR Not Detected (NotDetected) 01/04/24 15:29 Influenza Type B (PCR) Not Detected (NotDetected) 01/04/24 15:29 M. pneumoniae (PCR) Not Detected (NotDetected) 01/04/24 15:29 Parainfluenza 1 (PCR) Not Detected (NotDetected) 01/04/24 15:29 Parainfluenza 2 (PCR) Not Detected (NotDetected) 01/04/24 15:29 Parainfluenza 3 (PCR) Not Detected (NotDetected) 01/04/24 15:29 Parainfluenza 4 (PCR) Not Detected (NotDetected) 01/04/24 15:29 RSV (PCR) Not Detected (NotDetected) 01/04/24 15:29 Entero/Rhino (PCR) Not Detected (NotDetected) 01/04/24 15:29 Impressions Chest X-Ray 01/04/24 14:31 XR chest 2V PA/lateral CLINICAL HISTORY: Dyspnea TECHNIQUE: 2 views of the chest were obtained. Comparison: Comparison is made to chest radiograph of 02/24/2023 FINDINGS: No lines and tubes are seen. The cardiomediastinal silhouette is normal. The lungs are clear. No evidence of pleural effusion or pneumothorax. IMPRESSION: No acute abnormalities and in particular no radiographic evidence of pneumonia. ACT 112: Negative or not required by law. Electronically signed by: Abelardo Paris M.D. 01/04/2024 3:02 PM Chest CTA 01/04/24 17:18 CT angio chest PE protocol CLINICAL HISTORY: PE TECHNIQUE: Multidetector row helical CT of the chest was performed with angiographic protocol. Coronal and sagittal reformations were obtained. Coronal and sagittal MIPS were obtained from the axial data set and were submitted for review. Automated dose lowering techniques and/or adjustment according to patient size were utilized for this exam. CT DOSE: 907.25 mGy.cm Comparison: None available at the time of this dictation. FINDINGS: Lungs and pleura: Tree in bud nodularity is seen in the right lung. Heart and pericardium: Cardiomegaly is seen with biatrial enlargement. Vessels: No evidence of pulmonary embolism. Mediastinum and belia: Mediastinal nodes measure up to 13 mm in diameter. Chest wall and lower neck: Unremarkable. Abdomen: A hiatal hernia is seen. Bones: Degenerative changes in the thoracic spine. IMPRESSION: 1. No pulmonary embolus. 2. Tree in bud nodularity and mediastinal lymphadenopathy compatible with infectious/inflammatory process. ACT 112: Negative or not required by law. Electronically signed by: Abelardo Paris M.D. 01/04/2024 7:11 PM ECG Additional Comments: EKG per my interpretation - NSR at 70bpm, leftward axis, PN=490, ANB=170, ZPm=860, non-specific ST-T wave changes PG Care Time/CCT Total # of Minutes Spent Total Time Spent with Patient: Total time spent is greater than 50% in coordination of care (as documented) at patient's floor/unit and/or counseling patient: Coding Level of Care Code 37557 INT INP/OBS CARE 2/55MIN Diagnoses Influenza A J10.1 Elevated troponin R79.89 CHF (congestive heart failure) I50.9
[2024-01-04] MEDS: dexAMETHasone**PF** 10 MG/ML VIAL IV ONE (20:59)
[2024-01-04] MEDS: MoRPHine SULFATE 2 MG/ML CARP IV STA (20:59)
[2024-01-05 00:14] LABS: Magnesium 2.1 mg/dl (1.7-2.4); Phosphorus 4.2 mg/dl (2.5-4.9)
[2024-01-05] MEDS: AZITHROMYCIN 500 MG in DEXTROSE 5% 250 ML IV STA (01:24)
[2024-01-05] MEDS: ACETAMINOPHEN 325 MG TAB PO PRN (03:54)
[2024-01-05 04:30] LABS: Hematocrit (blood only) 48.5 % (42.0-52.0); Hemoglobin 16.1 g/dl (14.0-18.0); Mean Corpuscular Hemoglobin 27.3 pg (25.0-34.0); Mean Corpuscular Hgb Conc 33.2 g/dL (32.0-36.0); Mean Corpuscular Volume 82.3 fL (80.0-100.0); Platelet Count 399 K/uL (130-400); RDW Coefficient of Variation 12.9 % (11.5-14.5); RDW Standard Deviation 38.2 fL (36.4-46.3); Red Blood Count 5.89 M/uL (4.70-6.10); White Blood Count 7.27 K/ul (4.8-10.8)
[2024-01-05 04:32] LABS: BUN Creatinine Ratio 19.8 (10-20); Calcium 9.9 mg/dl (8.6-10.3); Est GFR (African American) 95.9 ml/min; Est GFR (Non-African American) 82.8 ml/min; Potassium 4.2 mmol/L (3.5-5.1)
[2024-01-05 04:39] LABS: Troponin I High Sensitivity 19.6 pg/ml (0-20)
[2024-01-05] MEDS: AZITHROMYCIN 250 MG TAB PO ONE (07:48)
[2024-01-05] MEDS: AZITHROMYCIN 250 MG in DEXTROSE 5% 250 ML IV SCH (08:19)
--- NOTE | 2024-01-05 10:32 | Hospitalist Progress Note ---
Date of Service January 05, 2024 Assessment & Plan (1) Influenza A: Plan: Patient positive for influenza A. Initially tested positive last week. He is afebrile. Infectious/inflammatory findings noted on CT -Admit to medical with telemetry -Maintain isolation precautions -Empiric antibiotics with Azithromycin (2) Elevated troponin: Plan: With reports of some chest discomfort -Telemetry monitoring -Trend troponin -Check 2D echo (3) CHF (congestive heart failure): Plan: Suspected acute on chronic HFrEF Details of patient's CHF are unclear. Family reports a depressed EF of 33% during last echo. Patient formerly followed with Cardiology but has not seen them or taken any cardiac medications for some time. I discussed with him briefly the benefit of medication compliance and possible improvement in EF and cardiac remodeling in CHF. He does not wish to resume his medications at this time but is open to reestablishing with a Data Modeler. He does not appear to be overtly volume overloaded but does reports some puffiness in his face and legs. -Check 2D echo -Monitor I/Os -Monitor daily weights -Consider repeat Lasix dosing IV -Due to repeated chest pressure, consult cardiology Plan F/E/N - diuresis with Lasix. Electrolytes WNL. Heart healthy diet as tolerated Ppx - Low risk for DVT. Encourage ambulation. Code - Full per discussion with patient at time of admission Dispo- Observation to medical with telemetry Admission and Anticipated Discharge Date Admission Date: January 04, 2024 Subjective Patient seen and examined, complains of persistent chest pressure Review of Systems Review of Systems: All systems reviewed are negative, apart from the ones contained in the history. Physical Exam Physical Exam: The patient is awake, alert and oriented 3, well developed and well nourished, normocephalic and atraumatic, lying in bed and in no acute distress. HEENT--PERRL, EOMI, mucous membranes and oropharynx mildly dry Neck--supple. No JVD. No bruits. Thyroid normal, trachea midline, no adenopathy. Heart--normal S1 and S2. No murmurs, rubs or gallops. Lungs--clear bilaterally, no respiratory distress, no accessory muscle use. Abdomen--normal bowel sounds and soft. Mild epigastric and left sided abdominal pain Extremities--no cyanosis or clubbing. No edema. Dermatologic--normal skin turgor, normal color, no abnormal lymph nodes, no rash. Neurologic--cranial nerves II through XII grossly intact. Rheumatologic--normal range of motion. Psychiatric--normal affect. Results & Data Results & Data Vital Signs (Past 12 Hours) Vital Signs Temp Pulse Pulse Resp BP BP Pulse Ox 01/05/24 08:00 75 13 97 01/05/24 08:00 152/96 H 01/05/24 07:36 75 01/05/24 06:01 82 15 01/05/24 06:01 130/88 01/05/24 06:00 86 12 01/05/24 04:00 69 10 L 145/98 H 01/05/24 02:00 70 18 124/83 95 01/05/24 01:27 69 12 141/81 H 96 01/05/24 01:26 67 01/05/24 01:26 66 12 134/79 97 01/05/24 01:00 01/05/24 01:00 98.4 F 01/05/24 00:44 67 16 182/90 H 93 01/04/24 23:00 68 18 159/106 H 97 O2 Del Method 01/05/24 08:00 01/05/24 08:00 01/05/24 07:36 01/05/24 06:01 01/05/24 06:01 01/05/24 06:00 01/05/24 04:00 01/05/24 02:00 Room Air 01/05/24 01:27 Room Air 01/05/24 01:26 01/05/24 01:26 Room Air 01/05/24 01:00 Room Air 01/05/24 01:00 01/05/24 00:44 Room Air 01/04/24 23:00 Room Air PG Care Time/CCT Total # of Minutes Spent Total Time Spent with Patient: Total time spent is greater than 50% in coordination of care (as documented) at patient's floor/unit and/or counseling patient: Coding Level of Care Code 86996 SUB INP/OBS CARE 2/35MIN Diagnoses Influenza A J10.1 Elevated troponin R79.89 CHF (congestive heart failure) I50.9 Time Spent (min) 35
--- NOTE | 2024-01-05 14:32 | Cardiology Consultation ---
Date of Consultation January 05, 2024 Assessment & Plan (1) Acute on chronic HFrEF (heart failure with reduced ejection fraction): (2) Nonischemic cardiomyopathy: (3) Chest pain: (4) Elevated troponin: (5) Hypertension: (6) Noncompliance: (7) Dyslipidemia: Plan ASSESSMENT/PLAN: 1. Chronic heart failure with reduced EF: He does not appear hypervolemic and feels improved after 1 dose of Lasix 20 mg IV. He does not wish to take medications on a daily basis but is willing to try 1 medication currently. Start metoprolol succinate 25 mg daily. He has as needed Lasix available at home. If tolerates metoprolol succinate, would then recommend Entresto, if affordable. Would also recommend spironolactone and SGLT2 inhibitor. He has been quite noncompliant in the past and fortunately is agreeable to move slowly with medications. Therefore, he is not likely to be on goal therapy when discharged but willing to work with him to see if he can tolerate these medications. Low-sodium diet, less than 2000 mg daily. Daily weights. Strict I's and O's while admitted. 2. Nonischemic cardiomyopathy: Nonischemic per patient/ report. Etiology uncertain. He recalls developing cardiomyopathy after bronchitis. Could be myocarditis. Unclear if secondary workup performed in the past. Would recommend obtaining records in the outpatient setting and if not done or unable to determine if done, repeating secondary workup. They were asked to try to remember where exactly the cardiac catheterization was completed so that we can obtain records. Medical therapy as above. Discussed ICD for primary prevention if no improvement with medical therapy or if unable to tolerate medical therapy. He is unsure if he would consent to such at this time. 3. Chest pain: Atypical. Was present for several days last week and several days again now. Does not seem consistent with ischemic heart disease as troponins actually were only slightly elevated and trending downward. Troponin elevation could be secondary to heart failure. Try to locate cardiac catheterization report done at outside hospital. Perhaps symptoms are being triggered by influenza A. 4. Elevated troponin: High-sensitivity troponin was only slightly elevated and trended downward despite constant pain for days. Plan as above. 5. Hypertension: Blood pressure has been mostly normotensive today. Recommend medication changes more suited for his heart failure/cardiomyopathy. 6. Dyslipidemia: Up-to-date lipids unclear. Due to his significant noncompliance, will first attempt to initiate guideline based therapies for his heart failure/cardiomyopathy and can consider lipid management if necessary in the future. 7. Noncompliance: We discussed the importance of medical noncompliance to try to improve his LV systolic function and quality of life. 8. Tobacco abuse: Reports that he smokes on occasion. Smoking cessation. 9. Disposition: Cardiology will continue to follow while hospitalized. He is agreeable to meet with Randee Presley in the heart failure program on discharge to help titrate medications as appropriate. Patient care discussed with primary hospitalist, Dr. Tadeo. Highly complex medical issues. Thank you for allowing me to participate in the care of your patient. Please call for any other questions or concerns. Sincerely, Sancho Clifton M.D. History of Present Illness Reason for Consultation: chest pain Requesting Physician: Jimmy Tadeo MD Attending Physician: Jimmy Tadeo MD History of Present Illness Mr. Méndez is a pleasant 58-year-old gentleman with a history significant for heart failure with preserved EF, nonischemic cardiomyopathy, dyslipidemia, hypertension, borderline diabetes, and right carotid artery aneurysm. He was last seen by cardiology in the [facility] in approximately 2009. History was obtained by talking to the patient and also his via speaker phone, while also reviewing available records. He apparently was diagnosed with nonischemic cardiomyopathy in approximately 2018. His reports that he had an ejection fraction at that time of 28%. Over time, the EF was then reported in the low to mid 30s%. He had been on several medications and he recalls specifically carvedilol, but he has discontinued them on his own. He states that he felt better off of the medication. While on medications at times, he would feel dizziness. He has Lasix available at home which she takes approximately once per year. He remembers having a cardiac catheterization in 2019 and was told that he did not have any significant CAD. He maintains a low-sodium diet but does not weigh himself regularly. He was hospitalized approximately 1 week ago at another hospital and was diagnosed with influenza A. He had been experiencing chest discomfort constantly which then eventually resolved only to return for 2 or 3 days prior to hospitalization here. Because of the chest pain, he presented to the emergency department and was admitted on 01/04/2024. It is a left-sided chest pressure. It has been continuous although it did resolve with some pain medication last night which allowed him to rest for approximately 4 hours. He has had some nausea and chronically has mild dyspnea on exertion, especially while climbing stairs. He has not noted any significant lower extremity edema but does feel bloated at times which he attributes to fluid retention. 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 Surgery was apparently discussed and he was told that he would eventually feel myocardial infarction type chest discomfort potentially from this tumor. In the past, he has been unable to afford Entresto. He denies melena, hematochezia, hematuria, syncope, near syncope, palpitations. He received Lasix 20 mg IV while here and reports significant urine output and improved bloating sensation. Review of systems: As above. Review of systems also notable for hard of hearing. Review of systems otherwise negative/unremarkable. Family history: No known premature CAD however he does not know his father's history well. Social history: Smokes occasionally. No alcohol. Denies drug abuse. Lives at home with his , Estefania. Has stepchildren. He works construction for [employer]. He was alone in his hospital room however his , Estefania, participated via speaker phone. Allergies Allergy/AdvReac Type Severity Reaction Status Date / Time No Known Allergies Allergy Unknown Verified 01/04/24 17:38 Home Medications Medication Instructions Recorded Confirmed Type No Known Home Medications 01/04/24 01/04/24 History Patient History Medical History Dyslipidemia Acute on chronic HFrEF (heart failure with reduced ejection fraction) Nonischemic cardiomyopathy Noncompliance Hypertension Carotid artery aneurysm CHF (congestive heart failure) Surgical History (Updated 01/05/24 @ 00:54 by Mari Schneider DO) History of surgery on lower extremity Social History Smoking Status: Current every day smoker Tobacco Type: Cigarettes Do You Dip or Chew Tobacco: No; Hx Alcohol Use: No Hx Substance Use: No Preferred Language: Georgian Communication Ability: Effective Communication Ability Comment: ANDREAFSKI Visual Impairment: No Limitations Plant Engineer Required: No Beliefs That Will Affect Care: None Current Living Situation: Spouse Feels Safe at Home: Yes Assistive Devices: None Physical Exam 2 Physical Exam: Gen.: No acute distress. Alert and oriented. Hard of hearing. HEENT: Anicteric sclera. Neck: No JVD. No hepatojugular reflux. No bruits. Normal carotid upstrokes bilaterally. Cardiac: No ventricular heave. Regular. Normal S1-S2. No murmurs, rubs, or gallops. Pulmonary: Clear to auscultation bilaterally without wheezes, rales, or rhonchi. Abdomen: Soft, nontender, nondistended, with normoactive bowel sounds. No bruits noted. Extremities: 2+ radial pulses bilaterally. 2+ posterior tibialis pulses bilaterally. No edema or cyanosis. Results & Data Vital Signs (Past 12 Hours) Vital Signs Pulse Resp BP Pulse Ox 01/05/24 12:00 75 19 01/05/24 10:00 88 20 01/05/24 10:00 127/87 01/05/24 08:00 75 13 97 01/05/24 08:00 152/96 H 01/05/24 07:36 75 01/05/24 06:01 82 15 01/05/24 06:01 130/88 01/05/24 06:00 86 12 01/05/24 04:00 69 10 L 145/98 H Intake & Output 01/03/24 01/04/24 01/05/24 01/06/24 06:59 06:59 06:59 06:59 Intake Total 355 / 355 252.5 / 252.5 Balance 355 / 355 252.5 / 252.5 Weight 174 lb 2.643 oz Laboratory Results Laboratory Results - last 24 hr 01/04/24 01/04/24 01/04/24 15:29 17:46 18:30 WBC 5.37 RBC 5.50 Hgb 14.6 Hct 46.9 MCV 85.3 MCH 26.5 MCHC 31.1 L RDW Std Deviation 39.1 RDW Coeff of Eleazar 12.7 Plt Count 375 MPV 8.9 L Immature Gran % (Auto) 0.4 Neut % (Auto) 49.8 Lymph % (Auto) 31.7 Mclean % (Auto) 11.9 Eos % (Auto) 5.6 Baso % (Auto) 0.6 Neut # (Auto) 2.68 Lymph # (Auto) 1.70 Mclean # (Auto) 0.64 H Eos # (Auto) 0.30 Baso # (Auto) 0.03 Immature Gran # (Auto) 0.02 PT 10.1 INR 0.9 APTT 26 PTT Ratio 0.9 D-Dimer 250 Sodium 143 Potassium 3.9 Chloride 107 Carbon Dioxide 30 Anion Gap 6 BUN 20 Creatinine 0.91 Est Cr Clr Drug Dosing 96.5 Est GFR ( Amer) 108.8 Est GFR (Non-Af Amer) 93.9 BUN/Creatinine Ratio 22.0 H Glucose 111 H Calcium 9.4 Phosphorus 4.2 Magnesium 2.1 Total Bilirubin 0.3 AST 27 ALT 42 Alkaline Phosphatase 93 Troponin I High Sens 30.1 H 31.4 H B-Natriuretic Peptide 626 H Total Protein 6.8 Albumin 4.1 Globulin 2.7 Albumin/Globulin Ratio 1.5 Procalcitonin < 0.02 Urine Color Yellow Urine Appearance Clear Urine pH 6.0 Ur Specific [place] 1.016 Urine Protein Negative Urine Glucose (UA) Negative Urine Ketones Negative Urine Blood Negative Urine Nitrite Negative Urine Bilirubin Negative Urine Urobilinogen Negative Ur Leukocyte Esterase Negative Nasal Influ A H1 2008 PCR DETECTED A Adenovirus (PCR) Not Detected B. pertussis DNA (PCR) Not Detected B.parapertussis DNA PCR Not Detected C. pneumoniae DNA (PCR) Not Detected Coronavirus OC43 (PCR) Not Detected Coronavirus HKU1 (PCR) Not Detected Coronavirus 229E (PCR) Not Detected SARS-CoV-2 (PCR) Not Detected Coronavirus NL63 (PCR) Not Detected Human Metapneumovir PCR Not Detected Influenza Type B (PCR) Not Detected M. pneumoniae (PCR) Not Detected Parainfluenza 1 (PCR) Not Detected Parainfluenza 2 (PCR) Not Detected Parainfluenza 3 (PCR) Not Detected Parainfluenza 4 (PCR) Not Detected RSV (PCR) Not Detected Entero/Rhino (PCR) Not Detected 01/05/24 01/05/24 03:57 10:36 WBC 7.27 RBC 5.89 Hgb 16.1 Hct 48.5 MCV 82.3 MCH 27.3 MCHC 33.2 RDW Std Deviation 38.2 RDW Coeff of Eleazar 12.9 Plt Count 399 MPV 9.0 L Immature Gran % (Auto) Neut % (Auto) Lymph % (Auto) Mclean % (Auto) Eos % (Auto) Baso % (Auto) Neut # (Auto) Lymph # (Auto) Mclean # (Auto) Eos # (Auto) Baso # (Auto) Immature Gran # (Auto) PT INR APTT PTT Ratio D-Dimer Sodium 141 Potassium 4.2 Chloride 104 Carbon Dioxide 28 Anion Gap 9 BUN 20 Creatinine 1.01 Est Cr Clr Drug Dosing 87.0 Est GFR ( Amer) 95.9 Est GFR (Non-Af Amer) 82.8 BUN/Creatinine Ratio 19.8 Glucose 156 H Calcium 9.9 Phosphorus Magnesium Total Bilirubin AST ALT Alkaline Phosphatase Troponin I High Sens 19.6 D 13.7 D B-Natriuretic Peptide Total Protein Albumin Globulin Albumin/Globulin Ratio Procalcitonin Urine Color Urine Appearance Urine pH Ur Specific Monessen Urine Protein Urine Glucose (UA) Urine Ketones Urine Blood Urine Nitrite Urine Bilirubin Urine Urobilinogen Ur Leukocyte Esterase Nasal Influ A H1 2008 PCR Adenovirus (PCR) B. pertussis DNA (PCR) B.parapertussis DNA PCR C. pneumoniae DNA (PCR) Coronavirus OC43 (PCR) Coronavirus HKU1 (PCR) Coronavirus 229E (PCR) SARS-CoV-2 (PCR) Coronavirus NL63 (PCR) Human Metapneumovir PCR Influenza Type B (PCR) M. pneumoniae (PCR) Parainfluenza 1 (PCR) Parainfluenza 2 (PCR) Parainfluenza 3 (PCR) Parainfluenza 4 (PCR) RSV (PCR) Entero/Rhino (PCR) Diagnostic Findings ECHO 01/05/24: 1. Mildly dilated left ventricle with moderately to severely reduced systolic function. EF 30-35%. Global hypokinesis. Moderate concentric left ventricular hypertrophy. 2. Normal right ventricular size with mildly reduced systolic function. 3. Moderate left atrial dilation. 4. Mild mitral regurgitation. 5. Normal estimated right ventricular systolic pressure. RVSP 27 mmHg. 6. Technically difficult study, enhanced with IV Definity. 7. No prior study available for comparison. Labs reviewed and notable for normal blood counts, stable renal function, normal potassium, minimally elevated high-sensitivity troponin and initially trending down despite constant chest discomfort. Elevated BNP, normal transaminase levels, normal magnesium. TSH was normal in 2022. ECG personally reviewed 01/04/2024 at 1524: NSR [address]/T wave abnormality. Similar findings compared to 02/24/2023 ECG. History and physical report and ER note reviewed. CTA chest 01/04/2024: No PE. Tree-in-bud nodularity and mediastinal lymp hadenopathy compatible with infectious/inflammatory process per radiology. Neck CTA 02/24/2023: No stenosis or dissection within bilateral common carotid, cervical internal carotid, or vertebral arteries. Medications Administered Current Inpatient Medications Acetaminophen (Acetaminophen 325 Mg Tab) 650 mg PO Q4H PRN PRN Reason: pain/fever Stop: 02/03/24 23:41 Last Admin: 01/05/24 16:27 Dose: 650 mg Azithromycin 250 mg/ Dextrose 252.5 mls @ 125 mls/hr IV Q24H MARIAH Stop: 01/12/24 08:59 Last Infusion: 01/05/24 11:05 Dose: Infused Metoprolol Succinate (Metoprolol Succ 25mg Ext Rel Tab) 25 mg PO QAM MARIAH Stop: 02/04/24 15:29 Last Admin: 01/05/24 16:42 Dose: 25 mg Ondansetron HCl (Ondansetron Inj 2 Mg/Ml 2 Ml Vial) 4 mg IV Q6H PRN PRN Reason: Nausea Stop: 02/03/24 23:41 Last Admin: 01/05/24 17:54 Dose: 4 mg PG Care Time/CCT Total # of Minutes Spent Total Time Spent with Patient: Total time spent is greater than 50% in coordination of care (as documented) at patient's floor/unit and/or counseling patient: Coding Level of Care Code 43210 INT INP/OBS CARE 3/75MIN Diagnoses Acute on chronic HFrEF (heart failure with reduced ejection fraction) I50.23 Nonischemic cardiomyopathy I42.8 Chest pain R07.9 Elevated troponin R77.8 Hypertension I10 Noncompliance Z91.199 Dyslipidemia E78.5
[2024-01-05] MEDS: METOPROLOL SUCC 25MG EXT REL TAB PO SCH (16:42)
[2024-01-05] MEDS: ONDANSETRON INJ 2 MG/ML 2 ML VIAL IV PRN (17:54)
--- NOTE | 2024-01-05 20:57 | XCELERA ---
[id number] [id number]
[2024-01-05] MEDS: KETOROLAC TROMETHAMINE 15 MG/ML VIAL IV STA (21:56)
[2024-01-05] MEDS: PROMETHAZINE HCL 12.5 MG in SODIUM CHLORIDE 0.9% 50 ML IV STA (21:56)
--- NOTE | 2024-01-05 22:31 | Electrocardiogram Report ---
Test Reason : Blood Pressure : / mmHG Vent. Rate : 070 BPM Atrial Rate : 070 BPM P-R Int : 150 ms QRS Dur : 102 ms QT Int : 412 ms P-R-T Axes : 038 -15 100 degrees QTc Int : 444 ms Normal sinus rhythm Voltage criteria for left ventricular hypertrophy Abnormal ECG When compared with ECG of 24-FEB-2023 10:32, Non-specific change in ST segment in Anterior leads Confirmed by Gamaliel Clifton ([id number]) on 01/05/2024 10:30:57 PM Referred By: Confirmed By:Gamaliel Clifton
[2024-01-05] MEDS: MoRPHine SULFATE 2 MG/ML CARP IV STA (22:42)
[2024-01-06] MEDS: MoRPHine SULFATE 2 MG/ML CARP IV STA (06:30)
--- NOTE | 2024-01-06 12:44 | Heart Failure Consultation ---
Date of Consultation January 06, 2024 History of Present Illness Attending Physician: Jimmy Tadeo MD History of Present Illness Meet with patient in their hospital room. He reports he is feeling well. Symptoms have resolved. He denies SOB/chest pain. No edema. Weight is at baseline- 174 lb. We discussed the nature of heart failure and the goals of the heart failure program. Patient is agreeable to ongoing participation and will be formally enrolled in the [facility] heart failure program. Patient advised to weigh themselves daily on their home scale. Notify the office if 2+ lb weight gain overnight or 5+ lb in 1 week. Low sodium diet recommended on discharge. Contact information provided. Patient will have scheduled outpatient follow up 01/11/24 at 1:30pm. Please see full cardiology consult for additional recommendations and formal plan of care. Allergies Allergy/AdvReac Type Severity Reaction Status Date / Time No Known Allergies Allergy Unknown Verified 01/04/24 17:38 Home Medications Medication Instructions Recorded Confirmed Type melatonin 5 mg capsule 5 mg PO .nightly insomnia #10 caps 01/06/24 Rx metoprolol succinate 25 mg 25 mg PO QAM 30 days #30 tabs 01/06/24 Rx tablet,extended release 24 hr Patient History Medical History Dyslipidemia Acute on chronic HFrEF (heart failure with reduced ejection fraction) Nonischemic cardiomyopathy Noncompliance Hypertension Carotid artery aneurysm CHF (congestive heart failure) Surgical History (Updated 01/05/24 @ 00:54 by Mari Schneider DO) History of surgery on lower extremity Social History Smoking Status: Current every day smoker Tobacco Type: Cigarettes Do You Dip or Chew Tobacco: No; Hx Alcohol Use: No Hx Substance Use: No Preferred Language: Mohawk Communication Ability: Effective Communication Ability Comment: ONE[place] Visual Impairment: No Limitations Attendance Secretary Required: No Beliefs That Will Affect Care: None Current Living Situation: Spouse Feels Safe at Home: Yes Assistive Devices: None Results & Data Vital Signs (Past 12 Hours) Vital Signs Temp Pulse Pulse Pulse Resp BP BP 01/06/24 11:07 98.1 F 73 16 138/80 01/06/24 10:33 98.4 F 88 72 16 129/68 147/93 H 01/06/24 10:28 01/06/24 07:33 98.4 F 72 16 147/93 H 01/06/24 07:32 63 01/06/24 04:40 97.7 F 67 18 138/88 Pulse Ox O2 Del Method 01/06/24 11:07 97 Room Air 01/06/24 10:33 97 01/06/24 10:28 Room Air 01/06/24 07:33 97 Room Air 01/06/24 07:32 01/06/24 04:40 96 Room Air Coding Level of Care Code None
--- NOTE | 2024-01-07 05:20 | Electrocardiogram Report ---
Test Reason : Blood Pressure : / mmHG Vent. Rate : 073 BPM Atrial Rate : 073 BPM P-R Int : 154 ms QRS Dur : 098 ms QT Int : 414 ms P-R-T Axes : 051 -12 061 degrees QTc Int : 456 ms Normal sinus rhythm Minimal voltage criteria for LVH, may be normal variant T wave abnormality, consider anterolateral ischemia Abnormal ECG When compared with ECG of 04-JAN-2024 15:24, Non-specific change in ST segment in Anterior leads Confirmed by Gamaliel Clifton ([id number]) on 01/07/2024 5:20:15 AM Referred By: REFERRED SELF Confirmed By:Gamaliel Clifton
--- NOTE | 2024-01-08 13:44 | Discharge Summary ---
Date of Service January 08, 2024 Admission HPI Per Admitting Provider Tristin Méndez is a 58yo male with history of HTN and CHF presenting with chest pain and shortness of breath. Patient was diagnosed with Influenza A 1 week ago. He was admitted to an outside facility for 4 days and reportedly treated with antibiotics, supplemental oxygen and Tamiflu (records unavailable). He was discharged home on antibiotics which he completed. He reports feeling better until today when he developed worsening shortness of breath, chest pain and fatigue. His chest pain is anterior left sided, constant, fairly severe 8/10 pressure. Non-pleuritic, non-exertional and non-positional. No aggravating or alleviating factors identified. He has some shortness of breath as well as intermittent nausea. Otherwise denies fever, chills, abdominal pain, vomiting or diarrhea. No falls or trauma. No edema or orthopnea. Patient reportedly with CHF - Echo performed at an outside facility recently, EF of 33% by patient's . Patient followed with Cardiology in the past and was on several medications - Carvedilol, Spironolactone, Amlodipine, Lisinopril and Hydralazine. He reports not taking these medications for many months because they do not like how they make him feel. In the ER he is afebrile, hypertensive otherwise HD stable ER Course: Lasix 20mg IV - has since filled 2 urinals full of clear, yellow urine Xopenex Tylenol Principal Diagnosis acute chf Discharge Exam The patient is awake, alert and oriented 3, well developed and well nourished, normocephalic and atraumatic, lying in bed and in no acute distress. HEENT--PERRL, EOMI, mucous membranes and oropharynx mildly dry Neck--supple. No JVD. No bruits. Thyroid normal, trachea midline, no adenopathy. Heart--normal S1 and S2. No murmurs, rubs or gallops. Lungs--clear bilaterally, no respiratory distress, no accessory muscle use. Abdomen--normal bowel sounds and soft. Mild epigastric and left sided abdominal pain Extremities--no cyanosis or clubbing. No edema. Dermatologic--normal skin turgor, normal color, no abnormal lymph nodes, no rash. Neurologic--cranial nerves II through XII grossly intact. Rheumatologic--normal range of motion. Psychiatric--normal affect. Discharge Data Allergies Allergy/AdvReac Type Severity Reaction Status Date / Time No Known Allergies Allergy Unknown Verified 01/04/24 17:38 Consultations 01/04/24 19:53 ED Decision to Admit Stat 01/05/24 10:27 Consult Cardiology Routine 01/05/24 15:13 [facility] [place]erral Routine Ordered Studies 01/04/24 17:18 CT angio chest PE protocol Stat Hospital Course (1) Influenza A: Patient positive for influenza A. Initially tested positive last week. He is afebrile. Infectious/inflammatory findings noted on CT -Admit to medical with telemetry -Maintain isolation precautions -Empiric antibiotics with Azithromycin (2) Elevated troponin: With reports of some chest discomfort -Telemetry monitoring -Trend troponin -Check 2D echo (3) CHF (congestive heart failure): Suspected acute on chronic HFrEF Details of patient's CHF are unclear. Family reports a depressed EF of 33% during last echo. Patient formerly followed with Cardiology but has not seen them or taken any cardiac medications for some time. I discussed with him briefly the benefit of medication compliance and possible improvement in EF and cardiac remodeling in CHF. He does not wish to resume his medications at this time but is open to reestablishing with a Energy Manager. He does not appear to be overtly volume overloaded but does reports some puffiness in his face and legs. -Check 2D echo -Monitor I/Os -Monitor daily weights -Consider repeat Lasix dosing IV -Due to repeated chest pressure, consult cardiology Plan F/E/N - diuresis with Lasix. Electrolytes WNL. Heart healthy diet as tolerated Ppx - Low risk for DVT. Encourage ambulation. Code - Full per discussion with patient at time of admission Dispo- Observation to medical with telemetry Total Time Total Time Spent Total Time Spent (In Minutes): 35 Discharge Plan Discharge Items Patient Disposition: Home - Self-Care Reason For Visit: CHEST PAIN Discharge Diagnosis: Flu, congestive heart failure, chest pain Activity: Resume your previous activity Non-emergency contact: Primary Care Provider and Energy Manager Call non-emergency contact if: you have any medication questions Follow-up/Referrals: Randee Presley PA-C [Physician Injection Molder] - 01/11/24 1:30 pm (Cardiology at [address] [place] [address] ) PCP,NO [Primary Care Provider] - Diet: Heart Healthy Addtl Attending Provider Instructions: Please make sure you follow-up with cardiology and heart failure clinic. Pending Studies at Discharge: No Stand-Alone Forms: My [facility] [employer], Work/School Release, Smoking Cessation Medications and DC Order Prescriptions: New metoprolol succinate 25 mg Tablet Extended Release 24 Hr 25 mg PO QAM 30 Days Qty: 30 0RF melatonin 5 mg capsule 5 mg PO .nightly Qty: 10 0RF Discharge Orders: Discharge Order (Routine); Ordered 01/06/24 Ordered By: Jimmy Tadeo Admission Data Admit Date/Time: 01/04/24 20:20 Attending Provider: Jimmy Tadeo Admit Provider: Mari Schneider Primary Care Provider: PCP,NO Other Providers: Randee Presley; Gamaliel Clifton Other Interventions: Discharge Summary Assessment (RN) Last Done: 01/06/24 10:33 Coding Level of Care Code 31616 INP/OBS DISCH >30 MIN Diagnoses Influenza A J10.1 Elevated troponin R79.89 CHF (congestive heart failure) I50.9 Time Spent (min) 35
== END 2024-01-06 11:47 | disposition home or self-care (01) | DRG 193 ==
LOC: ED 14:26 → SUATTDRO 20:20 → EDINP 20:20 → 2W 23:42